=== PATIENT | female | born 1990 | race Hispanic/Latino ===

== ENCOUNTER 2023-04-17 02:26 | Inpatient (IN) | payer SELFPAY ==
[2023-04-17] VITALS (7 sets, daily range): BP systolic 91–125; BP diastolic 57–76; PULSE 64–107; RESP 16–20; TEMP 36.8–37.4; O2SAT 95–99; BMI 19.9; BMI 18.7
[2023-04-17] MEDS: 0.9% Normal Saline (1000mL) 1,000 ML 999 ML IV (02:56)
[2023-04-17 02:57] LABS: Absolute Lymphocyte Count 1.63 X10^3/uL (0.83-4.51); Absolute Neutrophil Count 6.6 X10^3/uL (2.0-7.7); Basophil# 0.03 X10^3/uL; Basophil% 0.3 % (0-1); Eosinophil# 0.03 X10^3/uL; Eosinophils% 0.3 % (0-5); Hematocrit 37.4 % (37-47); Hemoglobin 11.7 g/dL (12.0-15.0); Lymphocyte # 1.63 X10^3/ul (0.83-4.51); Lymphocyte % 17.9 % (19-41); Mean Corp Hgb Conc 31.3 g/dL (32-36); Mean Corpuscular Hgb 25.8 pg (27.0-32.0); Mean Corpuscular Volume 82.4 fL (81-99); Mean Platelet Vol. 9.4 fl (6.2-12.0); Monocyte% 8.8 % (0-10); NRBC Flagged by Analyzer 0 % (0-5); Neutrophil # 6.57 X10^3/uL (2.7-7.7); Platelet Count 381 K/mm3 (150-450); RBC Distribution Width CV 12.9 % (11.6-14.6); Red Blood Count 4.54 M/mm3 (4.2-5.4); White Blood Count 9.1 K/mm3 (4.4-11.0)
[2023-04-17 03:19] LABS: Internal QC Validated? YES +Cl - CLEAR BKGD; Pregnancy, Serum, hCG Quali. NEGATIVE Negative
[2023-04-17 03:23] LABS: International Normalized Ratio 1.3; Prothrombin Time (Protime)PT. 16.4 SECONDS (11.7-14.9)
[2023-04-17 03:24] LABS: Partial Thromboplast Time 43.7 Seconds (24.1-36.2)
[2023-04-17 03:26] LABS: AST(SGOT) 11 U/L (15-37); Alanine Aminotransfer ALT/SGPT 15 U/L (13-56); Albumin, Serum 3.2 g/dL (3.2-5.0); Alkaline Phosphatase 97 U/L (45-117); Anion Gap 10 (5-15); BUN 8 mg/dL (7-18); Bilirubin, Direct 0.19 mg/dL (0.00-0.30); Calcium,Total 8.5 mg/dL (8.5-10.1); Chloride 101 mmol/L (98-107); Creatinine, Serum 0.67 mg/dL (0.55-1.02); EST Glomerular Filtration Rate 109 mL/min (>60); Est Glom Filt Rate - Afr Amer 132 mL/min (>60); Estimated Creatinine Clearance 95.07 ml/min; Globulin 5.1 g/dL (2.2-4.2); Glucose 103 mg/dL (74-106); Lipase 56 U/L (13-75); Potassium 3.2 mmol/L (3.5-5.1); Protein, Total 8.3 g/dL (6.4-8.2); Sodium Level 137 mmol/L (136-145)
--- NOTE | 2023-04-17 04:00 | RAD_ITS ---
INDICATION: cough EXAMINATION/TECHNIQUE: X-RAY - XR Chest 2 Views COMPARISON: None. FINDINGS: LINES/DEVICES: None. LUNGS: Large extensive area of consolidation in the right upper lobe with associated volume loss. Focal lucency within the area suggests cavitation. No pneumothorax. MEDIASTINUM: Unremarkable. CARDIAC SILHOUETTE: Not enlarged. BONES AND SOFT TISSUES: No acute abnormalities. RAD/Chest PA and Lateral IMPRESSION: Right upper lobe consolidation with cavitation. Findings consistent with pneumonia, atypical pneumonia, possible tuberculosis or lung abscess. Electronically Signed: Annie Parish MD at 4:23 EST ,
--- NOTE | 2023-04-17 04:29 | CT_ITS ---
INDICATION: abnormal cxr EXAMINATION: CT CHEST WITH CONTRAST - CT Chest W/ Contrast Injection TECHNIQUE: Helically acquired images were obtained of the chest following IV contrast. A radiation dose optimization technique was used for this scan. IV Contrast: IV 75mL [id number]-370 . RADIATION DOSAGE (If Supplied By Facility): CTDIvol = ( 5.39 ) mGy, DLP = ( 148.85 ) mGycm COMPARISON: Chest x-ray earlier same day. FINDINGS: LUNGS: Large extensive area of consolidation right upper lobe with volume loss. Focal area of cavitation peripherally within this consolidation, measures approximately 3.2 x 3 cm with irregular margins, no enhancing rim. PLEURA: No pleural effusion. No pneumothorax. MEDIASTINUM: Several prominent lymph nodes, largest node precarinal is likely borderline enlarged, suboptimal due to streak artifact from dense venous contrast. HEART: Not enlarged. AORTA: Normal caliber. UPPER ABDOMEN: Liver is very heterogeneous with probable fatty infiltration. BONES/SOFT TISSUES: No acute abnormalities. OTHER: None. CT/Chest WITH Contrast IMPRESSION: Right upper lobe extensive consolidation with peripheral cavitation. Findings most consistent with pneumonia, with cavitation suggesting possible necrotizing pneumonia, early lung abscess, or tuberculosis. Cannot exclude underlying cavitary mass, or central mass/malignancy within the area of consolidation. CT imaging follow-up after treatment 6-8 weeks is essential to confirm resolution and rule out underlying mass. Mediastinal adenopathy likely reactive. Heterogeneous liver likely steatosis but this is not completely assessed. Consider follow-up MRI for further characterization. Electronically Signed: Annie Parish MD at 5:42 EST ,
[2023-04-17 05:19] LABS: Lactic Acid 0.7 mmol/L (0.4-1.9)
[2023-04-17] MEDS: DiphenhydrAMINE 50 MG/ML Syringe 12.5 MG IV (05:40)
[2023-04-17] MEDS: Ceftriaxone 1 GM/50 ML BAG IV (05:40)
--- NOTE | 2023-04-17 06:04 | HP.PCM.HOS_ITS ---
[facility] - General General Date of Admission: 04/17/23 Date of Service: 04/17/23 Chief Complaint: Shortness of breath, bloody cough and weight loss with night sweats. HPI Narrative KEN FOUNTAIN, is a 32 Burmese F with no significant past medical history who presents to [facility] ER complaining of shortness of breath, bloody cough and weight loss with night sweats. Ms. Garcia does not speak [place]itanian so an purification operator helper had to be used to elicit a history. She reports that her symptoms began approximately 2 weeks ago while traveling from [place] to [facility] with hemoptysis and night sweats. She also admits to subjective fever and weight loss with increasing pain in her right upper back and streaks of blood in her sputum. She denies any obvious blood in her stools or dark tarry stools. She is currently here under illegal status but since her condition was worsening she should have decided to come in for further evaluation and treatment. In the ER her CT scan of the chest revealed cavitary pneumonia of the right upper lobe along with mediastinal lymphadenopathy with a high-index of clinical suspicion for pulmonary tuberculosis. The ER physician spoke to the cask maker on-call who recommended patient have acid-fast bacilli staining times 3 + quant-interferon testing to confirm the diagnosis of TB before she would begin the treatment regimen and the patient is in agreement with this plan. While she was in the ER she was treated for possible bacterial pneumonia with IV Rocephin and IV azithromycin and these agents will be continued until her TB diagnosis is fully confirmed. She was then admitted to the PCU for ongoing care for status expected to be greater than 48 hours. [facility] Medical History no medical history Home Medications NK 04/17/23 [History Last Taken Unknown] Allergy/AdvReac Type Severity Reaction Status Date / Time No Known Allergies Allergy Verified 04/17/23 02:32 Surgical History no surgical history Social History Smoking Status: Never smoker ROS ROS Narrative Review of systems was made more difficult by the fact that this patient does not speak [place]ian so an purification operator helper had to be used. Review of Systems ROS Unobtainable: other Constitutional Constitutional: Reports anorexia, change in weight, chills, fatigue, fever(s), malaise, night sweats and weakness Eyes Eyes: Denies blurry vision, change in eye color, change in vision, discharge from eye(s), double vision, erythema, eye pain, loss of vision or other ENT HEENT: Denies abnormal hearing, dysphagia, ear pain, epistaxis, headache(s), hearing loss, nasal congestion, nasal discharge, post nasal drip, sinus pressure, sore throat or other Cardiovascular Cardiovascular: Denies chest pain, claudication, dyspnea on exertion, edema, li ghtheadedness, orthopnea, palpitations, paroxysmal nocturnal dyspnea, rapid heart rate, syncope or other Respiratory/Chest Respiratory/Chest: Reports cough, dyspnea, excessive phlegm production, hemoptysis, productive cough and shortness of breath with exertion Gastrointestinal Gastrointestinal: Denies abdominal pain, coffee ground emesis, constipation, diarrhea, dyspepsia, hematemesis, hematochezia, loose stools, melena, nausea, vomiting or other Genitourinary Genitourinary: Denies burning urination, difficulty urinating, dysuria, hematuria, nocturia, urinary frequency, urinary hesitancy, urinary incontinence, urinary urgency or other Musculoskeletal Musculoskeletal: Reports myalgias Neurologic Neurologic: Denies abnormal gait, abnormal speech, confusion, disequilibrium, dizziness, focal weakness, headache(s), numbness, paresthesias, seizure-like activity, seizures, syncope, tingling, tremor(s) or other Psychiatric Psychiatric: Denies anxiety, depression, homicidal ideation, suicidal ideation or other Endocrine Endocrinology: Denies change in body appearance, cold intolerance, excessive sweating, heat intolerance, polydipsia, polyuria or other Hematologic/Lymphatic Hematologic/Lymphatic: Reports lymphadenopathy Allergic/Immunologic Allergic/Immunologic: Denies rhinitis, hives, eczemia, asthma or other Vital Signs Vital Signs Vital Signs: 04/17/23 02:27 04/17/23 02:35 04/17/23 05:43 Temperature 99.3 F H Temperature Source Oral Pulse Rate 107 H 93 Respiratory Rate 16 16 Respiratory Effort Normal Non-Labored Respiratory Pattern Normal Blood Pressure 125/76 H 106/64 Blood Pressure Mean 92 78 Pulse Ox 95 99 Oxygen Delivery Method Room Air Room Air Weight Weight: 109 lb 2.061 oz Body Mass Index (BMI) 19.9 Physical Exam Const alert, oriented x3, no apparent distress and average body habitus General Appearance: cooperative HEENT normocephalic, head/scalp atraumatic, hearing grossly normal bilaterally, moist oral mucous membranes and oropharynx normal Eyes PERRL and EOMs intact bilaterally Neck supple Resp Resp Narrative: Diminished breath sounds on the right with scattered rhonchi. Auscultation: rhonchi Cardio regular rate and regular rhythm GI normal to inspection, nondistended, normoactive bowel sounds, soft to palpation, non-tender and non-distended Extremity normal to inspection Skin Skin Narrative: Patient has no evidence of rash at this time. Neuro oriented x3, CN's II-XII intact bilaterally, moves all extremities and no focal motor deficits Sensorium / Orientation: awake, alert, oriented to person, oriented to place and oriented to time Speech: speech normal Motor Exam: strength 5/5 throughout Psych affect normal Results Lab / Micro Data Attestation: I reviewed the patient's lab results. 04/17/23 02:42 04/17/23 02:42 Labs: Laboratory Results - last 24 hr 04/17/23 02:42: WBC 9.1, RBC 4.54, Hgb 11.7 L, Hct 37.4, MCV 82.4, MCH 25.8 L, MCHC 31.3 L, RDW Std Deviation 39.0, RDW Coeff of Don 12.9, Plt Count 381, MPV 9.4, Immature Gran % (Auto) 0.700, Neut % (Auto) 72.0 H, Lymph % (Auto) 17.9 L, Kaufman % (Auto) 8.8, Eos % (Auto) 0.3, Baso % (Auto) 0.3, Absolute Neuts (auto) 6.6, Absolute Lymphs (auto) 1.63, Nucleated RBC % 0, PT 16.4 H, INR 1.3, APTT 43.7 H, Sodium 137, Potassium 3.2 L, Chloride 101, Carbon Dioxide 26.0, Anion Gap 10, BUN 8, Creatinine 0.67, Estim Creat Clear Calc 95.07, Est GFR (MDRD) Af Amer 132, Est GFR (MDRD) Non-Af 109, BUN/Creatinine Ratio 12.0, Glucose 103, Calcium 8.5, Total Bilirubin 0.60, Direct Bilirubin 0.19, AST 11 L, ALT 15, Alkaline Phosphatase 97, Total Protein 8.3 H, Albumin 3.2, Globulin 5.1 H, Lipase 56, Serum , Qual NEGATIVE 04/17/23 04:46: Lactic Acid 0.7 Micro: Microbiology 04/17/23 03:54 Stool Stool Occult Blood (AVTAR) - Final Imagaing Radiology Impression Chest X-Ray 04/17/23 04:00 IMPRESSION: Right upper lobe consolidation with cavitation. Findings consistent with pneumonia, atypical pneumonia, possible tuberculosis or lung abscess. Electronically Signed: Annie Parish MD at 4:23 EST , Chest CT 04/17/23 04:29 IMPRESSION: Right upper lobe extensive consolidation with peripheral cavitation. Findings most consistent with pneumonia, with cavitation suggesting possible necrotizing pneumonia, early lung abscess, or tuberculosis. Cannot exclude underlying cavitary mass, or central mass/malignancy within the area of consolidation. CT imaging follow-up after treatment 6-8 weeks is essential to confirm resolution and rule out underlying mass. Mediastinal adenopathy likely reactive. Heterogeneous liver likely steatosis but this is not completely assessed. Consider follow-up MRI for further characterization. Electronically Signed: Annie Parish MD at 5:42 EST , Assessment & Plan Assessment/Plan (1) Cavitary pneumonia: (2) Suspected tuberculosis: PLAN: Plan 1. Extensive right upper lobe cavitary pneumonia with mediastinal lymphadenopathy evident on CT this admission suspicious for tuberculosis - Admit to PCU's negative pressure room. Continue empiric IV Rocephin and IV azithromycin and await culture and sensitivity data. Check acid-fast bacilli staining times 3+ quant interferon testing to confirm suspicion of pulmonary tuberculosis. Give Tylenol as needed for level 1-10 pain or fever. Finally, we will consult cask maker on-call see this patient on rounds later today for further recommendations with help appreciated in advance. 2. Hypokalemia of 3.2 mmol/L present on admission - Give supplemental KCl and then recheck BMP in the AM to ensure improvement. 3. DVT prophylaxis - SCD's only at this time with patient having active hemoptysis. Total time: Approximately 40 minutes. Charges/Coding Visit Charges Inpatient E&M: 11387 Init Hosp L1
--- NOTE | 2023-04-17 06:13 | EDS_ITS ---
HPI History of Present Illness Chief Complaint: General Illness Informant: patient Narrative Narrative: Patient is a 32-year-old female with no reported medical history. She states she is from [place] and that she is in the country illegally. She states for approximately 2 weeks she has had cough and shortness of breath with subjective fevers and states that she has had night sweats and weight loss. She states she has been having increasing pain in her right upper back and has reportedly had bouts of bright red blood in her emesis. She denies any dark or blood from the intestines. She states that as she has had symptoms for a few weeks and feel that they are steadily worsening she comes in for evaluation [facility] Medical History no medical history no medical history Home Medications NK 04/17/23 [History Last Taken Unknown] Allergy/AdvReac Type Severity Reaction Status Date / Time No Known Allergies Allergy Verified 04/17/23 02:32 Surgical History no surgical history Social History Smoking Status: Never smoker ROS ROS ED Constitutional Constitutional ED: Reports fever(s), subjective, sweats and weight loss; Denies chills ENT ENT ED: Denies rhinorrhea or sore throat Cardiovascular Cardiovascular: Denies chest pain Respiratory/Chest Respiratory/Chest: Reports cough and dyspnea Gastrointestinal Gastrointestinal: Reports nausea, vomiting and other Details: Positive hematemesis ; Denies abdominal pain or diarrhea Genitourinary Genitourinary ED: Denies dysuria Musculoskeletal Musculoskeletal: Denies myalgias Integumentary Denies rash Neurologic Neurologic: Denies headache(s) Hematologic/Lymphatic Hematologic/Lymphatic: Denies easy bleeding or easy bruising EXAM Physical Exam Const Vital Signs: 04/17/23 02:27 04/17/23 02:35 04/17/23 05:43 Temperature 99.3 F H Temperature Source Oral Pulse Rate 107 H 93 Respiratory Rate 16 16 Respiratory Effort Normal Non-Labored Respiratory Pattern Normal Blood Pressure 125/76 H 106/64 Blood Pressure Mean 92 78 Pulse Ox 95 99 Oxygen Delivery Method Room Air Room Air Positive well nourished and well developed General Appearance ED: well developed; Negative for pallor HEENT Reports moist mucous membranes HEENT Narrative: No dried blood or active bleeding noted in the posterior pharynx No tongue or lip swelling Airway edema or compromise Eyes PERRL and EOMs intact bilaterally General Eye ED: Negative for scleral icterus Neck supple and no JVD Neck Narrative: No nuchal rigidity or meningeal signs No crepitance palpated Resp normal respiratory effort Resp Narrative: No nasal flaring retractions tachypnea or accessory muscle use. Breath sounds are diminished in the right upper lobe compared to the other lung heath however no obvious wheezes or rhonchi noted Cardio regular rate and regular rhythm Rate: other Other Details: Radial and carotid pulses are equal and symmetric Heart is regular rate and rhythm without murmurs rubs or gallops GI normal to inspection, nondistended, normoactive bowel sounds, non-tender, non- distended and no masses GI Narrative: No voluntary guarding or rigidity. No pulsatile mass or fluid wave. Auscultation: normoactive bowel sounds Palpation: soft Narrative: Rectal exam displays normal tone with brown stool that is Hemoccult negative Extremity normal to inspection Extremity Narrative: No asymmetric edema no pitting edema negative Homans' sign bilaterally Neuro oriented x3 and CN's II-XII intact bilaterally Sensorium / Orientation: alert Psych mental status grossly normal Skin no rashes or lesions noted General Skin Exam: Negative for jaundice or pallor MDM MDM MDM Narrative Medical decision making narrative: Patient presented to the ER in no acute distress. She only speaks [place] so an poultry hatchery man was used for her history of present illness review of systems and physical exam. She stated that she was having hematemesis but on further review it is hemoptysis. Initially basic blood work was ordered to check for potential GI bleed and acute blood loss anemia. His H&H is stable her BUN is not elevated and stool study does not show any blood going against a GI bleed. As the patient then voiced symptoms of upper back pain there is concern this is secondary to a pneumonia so a chest x-ray was added. Chest x-ray showed a consolidation in the right upper lobe so a CT scan was obtained for better image. CT documented a cavitating pneumonia that could be a early lung abscess versus developing TB. The case was discussed with pulmonology/Dr. Howell. He feels as [place] and her symptoms been ongoing for a few weeks and she does not have true fever or elevation to her white count or lactic acid this is most likely TB. At this time as the patient has a high risk of being lost to follow-up and there is still need for confirmation medicine was contacted. They do agree to accept the patient at this time for further workup to designate her pneumonia as TB versus a other type. As she is from the community I did elect to give her Rocephin and Zithromax to cover any possible bacterial pneumonia. Dr. Howell/pulmonology recommends holding off on beginning treatment for potential TB until we have a confirmatory response. The plan of care was discussed with the patient and she is agreeable to it History & Record Review Discussion w/independent historian: Patient Lab Data Attestation: I reviewed the patient's lab results. Labs: Laboratory Results - last 24 hr 04/17/23 04/17/23 02:42 04:46 WBC 9.1 RBC 4.54 Hgb 11.7 L Hct 37.4 MCV 82.4 MCH 25.8 L MCHC 31.3 L RDW Std Deviation 39.0 RDW Coeff of Don 12.9 Plt Count 381 MPV 9.4 Immature Gran % (Auto) 0.700 Neut % (Auto) 72.0 H Lymph % (Auto) 17.9 L [place] % (Auto) 8.8 Eos % (Auto) 0.3 Baso % (Auto) 0.3 Absolute Neuts (auto) 6.6 Absolute Lymphs (auto) 1.63 Nucleated RBC % 0 PT 16.4 H INR 1.3 APTT 43.7 H Sodium 137 Potassium 3.2 L Chloride 101 Carbon Dioxide 26.0 Anion Gap 10 BUN 8 Creatinine 0.67 Estim Creat Clear Calc 95.07 Est GFR (MDRD) Af Amer 132 Est GFR (MDRD) Non-Af 109 BUN/Creatinine Ratio 12.0 Glucose 103 Lactic Acid 0.7 Calcium 8.5 Total Bilirubin 0.60 Direct Bilirubin 0.19 AST 11 L ALT 15 Alkaline Phosphatase 97 Total Protein 8.3 H Albumin 3.2 Globulin 5.1 H Lipase 56 Serum , Qual NEGATIVE Radiography Diagnostic Testing: Clinical Impression(s) from Imaging Studies Chest X-Ray 04/17/23 04:00 IMPRESSION: Right upper lobe consolidation with cavitation. Findings consistent with pneumonia, atypical pneumonia, possible tuberculosis or lung abscess. Electronically Signed: Annie Parish MD at 4:23 EST , Chest CT 04/17/23 04:29 IMPRESSION: Right upper lobe extensive consolidation with peripheral cavitation. Findings most consistent with pneumonia, with cavitation suggesting possible necrotizing pneumonia, early lung abscess, or tuberculosis. Cannot exclude underlying cavitary mass, or central mass/malignancy within the area of consolidation. CT imaging follow-up after treatment 6-8 weeks is essential to confirm resolution and rule out underlying mass. Mediastinal adenopathy likely reactive. Heterogeneous liver likely steatosis but this is not completely assessed. Consider follow-up MRI for further characterization. Electronically Signed: Annie Parish MD at 5:42 EST , Chest x-ray as interpreted by the emergency medicine physician reveals right upper lobe consolidation with mild cavitation Discharge Plan Triage Chief Complaint: General Illness ED Provider: David King Dx/Rx/DC Orders Clinical Impression: Suspected tuberculosis, Cavitary pneumonia Prescriptions: No Action NK Primary Care Provider: Care Physician,No Primary Referrals: Care Physician,No Primary [Primary Care Provider] - Disposition Disposition: Acute Care [facility]
[2023-04-17] MEDS: Azithromycin 500 MG in Dextrose 5%-Water (250mL Bag) 250 ML 250 MG IV (06:18)
[2023-04-17 07:19] LABS: Acid Fast Stain SEE PATHOLOGY REPORT; Cytology, Body Fluid / CSF SEE PATHOLOGY REPORT
[2023-04-17 08:31] LABS: HIV - WCH Non-Reactive (Nonreactive)
[2023-04-17] MEDS: Potassium Chloride Oral Tablet 20 MEQ 40 MEQ PO (09:15)
[2023-04-17] MEDS: 0.9% Normal Saline (1000mL) 1,000 ML 100 ML IV ×2 (09:15→20:36)
[2023-04-17] MEDS: Acetaminophen 325 MG Tablet 650 MG PO (09:26)
[2023-04-17] MEDS: Sodium Chloride 3% 500 ML IV.SOLN. INHALATION (09:45)
--- NOTE | 2023-04-17 10:00 | CYSPIN_PTH ---
PATIENT: URVASHI COLLADO LOC: [facility] U#:[id number] AGE/SX: 32/F ROOM: [facility] RE04/17/[address]: Dr. Lorenzo Shah MD : 1990 BED: 1 DIS: 04/18/2023 SPEC #: [id number] RECD: 04/18/23 11:07 STATUS: ASHLEY RE #: [id number] ANALISA: 04/17/23 10:[address]: Lorenzo Shah DEPT: CYTOLOGY RECD BY: Lluvia Walters ENTERED: 04/18/23 11:08 SP TYPE: CYSPIN FL OTHR DR: MD Dr. Arslan Trivedi DO Dr. David de Lorenzo, DO Dr. Lamia Aljundi, MD Dr. Robert Leininger, MD Dr. Tanmay Panchabhai, MD Primary Care Phys uZlema Pete, MOE-C Tissues: Sputum Procedures: Pap Stain (control) Special Stain Group II Special Stain Group I AFB Stain (control) Cytospin Fluid HEADER OPERATION: Not noted PRE-OP DIAGNOSIS: Suspected TB, right upper lobe cavitary pneumonia TISSUE SUBMITTED: Sputum #1 for cytology DIAGNOSIS CYTOLOGY Sputum #1 for cytology (smears and cytospin): Negative for malignant cells. Rare fungal organisms consistent with Arianna. Positive for acid fast bacilli. See comment. AM:raquel 04/18/2023 COMMENT AFB stain with matched control was used in the evaluation of this case. This case was discussed with Dr. Howell on 04/18/2023. CYTOLOGY STUDY Slides are reviewed. CYTOLOGY GROSS Received is 5 ml of red cloudy fluid labeled with the patient's name and and designated per the requisition as sputum #1. Submitted for cytology preparation. / raquel 04/18/2023 TC:5 CPT: 89771
[2023-04-17] MEDS: Piperacil/Tazobactam 3.375 GM in 0.9% Normal Saline (50mL MB+) 50 ML IV ×3 (10:12→21:04)
--- NOTE | 2023-04-17 12:34 | PN.HOSP_ITS ---
Reason for Visit Reason for Visit: Diagnoses Pneumonia, unspecified organism (04/17/23) Other disorders of lung (04/17/23) Other general symptoms and signs (04/17/23) Subjective Subjective Patient is a 32-year-old lady relatively good health with no chronic medical comorbidities originally from [place] who presented with a 2-week history of shortness of breath cough nausea and vomiting with associated weight loss as well as night sweats. CT of the chest obtained on admission demonstrated Right upper lobe extensive consolidation with peripheral cavitation. Objective Data Objective Data Vital Signs: Vital Signs Temp Pulse Resp BP Pulse Ox O2 Del Method 98.3 F 78 20 H 95/59 L 97 Room Air 04/17/23 08:32 04/17/23 09:40 04/17/23 09:40 04/17/23 08:32 04/17/23 08:32 04/17/23 09:04 Oxygen Delivery Method Room Air Weight: 45 kg Body Mass Index (BMI) 18.7 Intake & Output: Intake and Output for Last 24 Hours 04/15/23 04/16/23 04/17/23 23:59 23:59 23:59 Intake Total 1305 / 1305 Balance 1305 / 1305 Lab / Micro Data 04/17/23 02:42 04/17/23 02:42 Labs: Laboratory Results - last 24 hr 04/17/23 02:42: WBC 9.1, RBC 4.54, Hgb 11.7 L, Hct 37.4, MCV 82.4, MCH 25.8 L, MCHC 31.3 L, RDW Std Deviation 39.0, RDW Coeff of Don 12.9, Plt Count 381, MPV 9.4, Immature Gran % (Auto) 0.700, Neut % (Auto) 72.0 H, Lymph % (Auto) 17.9 L, [place] % (Auto) 8.8, Eos % (Auto) 0.3, Baso % (Auto) 0.3, Absolute Neuts (auto) 6.6, Absolute Lymphs (auto) 1.63, Nucleated RBC % 0, PT 16.4 H, INR 1.3, APTT 43.7 H, Sodium 137, Potassium 3.2 L, Chloride 101, Carbon Dioxide 26.0, Anion Gap 10, BUN 8, Creatinine 0.67, Estim Creat Clear Calc 95.07, Est GFR (MDRD) Af Amer 132, Est GFR (MDRD) Non-Af 109, BUN/Creatinine Ratio 12.0, Glucose 103, Calcium 8.5, Total Bilirubin 0.60, Direct Bilirubin 0.19, AST 11 L, ALT 15, Alkaline Phosphatase 97, Total Protein 8.3 H, Albumin 3.2, Globulin 5.1 H, Lipase 56, Serum , Qual NEGATIVE 04/17/23 04:46: Lactic Acid 0.7 04/17/23 06:27: HIV 1&2 Antibody Non-Reactive Micro: Microbiology 04/17/23 05:47 Nasal Secretion SARS-CoV-2 & FLU Antigen (Rapid) - Final 04/17/23 03:54 Stool Stool Occult Blood (AVTAR) - Final Radiography Diagnostic Testing: Radiology Impression Chest X-Ray 04/17/23 04:00 IMPRESSION: Right upper lobe consolidation with cavitation. Findings consistent with pneumonia, atypical pneumonia, possible tuberculosis or lung abscess. Electronically Signed: Annie Parish MD at 4:23 EST , Chest CT 04/17/23 04:29 IMPRESSION: Right upper lobe extensive consolidation with peripheral cavitation. Findings most consistent with pneumonia, with cavitation suggesting possible necrotizing pneumonia, early lung abscess, or tuberculosis. Cannot exclude underlying cavitary mass, or central mass/malignancy within the area of consolidation. CT imaging follow-up after treatment 6-8 weeks is essential to confirm resolution and rule out underlying mass. Mediastinal adenopathy likely reactive. Heterogeneous liver likely steatosis but this is not completely assessed. Consider follow-up MRI for further characterization. Electronically Signed: Annie Parish MD at 5:42 EST , Physical Exam Narrative GENERAL: cooperative HEENT: Atraumatic; normocephalic EYES; Anicteric, Normal Conjunctiva NECK; supple, normal thyroid, RESPIRATORY: Diminished to auscultation CARDIOVASCULAR: Regular S1 S2, GI: soft, normoactive bowel sounds, : No Renal angle tenderness; EXTREMITIES: No edema, no clubbing, MUSCULOSKELETAL: no muscle wasting NEURO: Awake; no lateralizing signs. SKIN: No Rash PSYCH; Flat affect Assessment & Plan Assessment/Plan (1) Cavitary pneumonia: (2) Suspected tuberculosis: PLAN: Plan Patient is a 32-year-old lady relatively good health with no chronic medical comorbidities originally from [place] who presented with a 2-week history of shortness of breath cough nausea and vomiting with associated weight loss as well as night sweats. CT of the chest obtained on admission demonstrated Right upper lobe extensive consolidation with peripheral cavitation. 1. Cavitary 3 lesion involving the right upper lobe ? CT of the chest did showRight upper lobe extensive consolidation with peripheral cavitation. Findings most consistent with pneumonia, with cavitation suggesting possible necrotizing pneumonia, early lung abscess, or tuberculosis. Admitted to a monitored bed placed in a negative pressure room patient currently being worked up for tuberculosis with QuantiFERON gold as well as AFB's 2. Hypokalemia ? Corrected per protocol 3. DVT prophylaxis Low risk encourage early ambulation Time spent in the patient's overall evaluation,decision-making process, review of diagnostic data, adjustment of management, discussion with other providers, nursing nursing and ancillary staff involved in patient's care documentation, 35 Minutes Charges/Coding Visit Charges Inpatient E&M: 53803 Subs Hosp L2
--- NOTE | 2023-04-17 16:40 | CYSPIN_PTH ---
PATIENT: URVASHI COLLADO LOC: [facility] U#:[id number] AGE/SX: 32/F ROOM: [facility] RE04/17/[address]: Dr. Lorenzo Shah MD : 1990 BED: 1 DIS: 04/18/2023 SPEC #: [id number] RECD: 04/18/23 11:08 STATUS: ASHLEY REAlvarez #: [id number] ANALISA: 04/17/23 16:[address]: Lorenzo Shah DEPT: CYTOLOGY RECD BY: Lluvia Walters ENTERED: 04/18/23 11:08 SP TYPE: CYSPIN FL OTHR DR: MD Dr. Arslan Trivedi DO Dr. David de Lorenzo, DO Dr. Lamia Aljundi, MD Dr. Robert Leininger, MD Dr. Tanmay Panchabhai, MD Primary Care Phys Zulema Pete, [employer]-C Tissues: Sputum Procedures: Pap Stain (control) Special Stain Group II Special Stain Group I AFB Stain (control) Cytospin Fluid HEADER OPERATION: Not noted PRE-OP DIAGNOSIS: Suspected TB, right upper lobe cavitary pneumonia TISSUE SUBMITTED: Sputum #2 for cytology DIAGNOSIS CYTOLOGY Sputum #2 for cytology (smears and cytospin): Negative for malignant cells. Rare fungal organisms consistent with Arianna. Positive for acid fast bacilli. See comment. AM:raquel 04/18/2023 COMMENT AFB stain with matched control was used in the evaluation of this case. This case was discussed with Dr. Howell on 04/18/2023 CYTOLOGY STUDY Slides are reviewed. CYTOLOGY GROSS Received is 2 ml of light pink cloudy, mucoidy fluid labeled with the patient's name and and designated per the requisition as sputum #2. Submitted for cytology preparation. / raquel 04/18/2023 TC:5 CPT: 41401
[2023-04-17 18:56] LABS: Acid Fast Stain SEE PATHOLOGY REPORT; Cytology, Body Fluid / CSF SEE PATHOLOGY REPORT
[2023-04-18 00:30] VITALS: BP 96/57; PULSE 88; RESP 18; TEMP 37.1; O2SAT 98
--- NOTE | 2023-04-18 00:30 | CYSPIN_PTH ---
PATIENT: URVASHI COLLADO LOC: [facility] U#:[id number] AGE/SX: 32/F ROOM: [facility] RE04/17/[address]: Dr. Lorenzo Shah MD : 1990 BED: 1 DIS: 04/18/2023 SPEC #: [id number] RECD: 04/18/23 11:09 STATUS: ASHLEY REAlvarez #: [id number] ANALISA: 04/18/23 00:[address]: Lorenzo Shah DEPT: CYTOLOGY RECD BY: Lluvia Walters ENTERED: 04/18/23 11:09 SP TYPE: CYSPIN FL OTHR DR: MD Dr. Arslan Trivedi DO Dr. David de Lorenzo, DO Dr. Lamia Aljundi, MD Dr. Robert Leininger, MD Dr. Tanmay Panchabhai, MD Primary Care Phys Zulema Pete, [employer]GER-C Tissues: Sputum Procedures: Pap Stain (control) Special Stain Group II Special Stain Group I AFB Stain (control) Cytospin Fluid HEADER OPERATION: Not noted PRE-OP DIAGNOSIS: Suspected TB, right upper lobe cavitary pneumonia TISSUE SUBMITTED: Sputum #3 for cytology DIAGNOSIS CYTOLOGY Sputum #3 for cytology (smears and cytospin): Negative for malignant cells. Rare fungal organisms consistent with Arianna. Positive for acid fast bacilli. See comment. AM:raquel 04/18/2023 COMMENT AFB stain with matched control was used in the evaluation of this case. This case was discussed with Dr. Howell on 04/18/2023. CYTOLOGY STUDY Slides are reviewed. CYTOLOGY GROSS Received is 2 ml of light pink mucoidy fluid labeled with the patient's name and and designated per the requisition as sputum #3. Submitted for cytology preparation. / raquel 04/18/2023 TC:5 CPT: 10812, 49475
--- NOTE | 2023-04-18 00:43 | CPS ---
Obtained 3rd sputum sample, it was blood tindged and thick, clear and frothy with small amt of blood present
[2023-04-18 00:46] LABS: Acid Fast Stain SEE PATHOLOGY REPORT; Cytology, Body Fluid / CSF SEE PATHOLOGY REPORT
[2023-04-18] MEDS: 0.9% Normal Saline (1000mL) 1,000 ML 100 ML IV ×2 (05:06→16:07)
[2023-04-18 05:09] VITALS: BP 87/55; PULSE 84; PULSE 85; RESP 18; TEMP 37.1; O2SAT 97
[2023-04-18 05:17] VITALS: BP 85/52; PULSE 84
[2023-04-18] MEDS: Piperacil/Tazobactam 3.375 GM in 0.9% Normal Saline (50mL MB+) 50 ML IV (05:18)
[2023-04-18 05:52] LABS: Absolute Lymphocyte Count 1.05 X10^3/uL (0.83-4.51); Absolute Neutrophil Count 6.2 X10^3/uL (2.0-7.7); Basophil# 0.01 X10^3/uL; Basophil% 0.1 % (0-1); Eosinophil# 0.09 X10^3/uL; Eosinophils% 1.1 % (0-5); Lymphocyte # 1.05 X10^3/ul (0.83-4.51); Lymphocyte % 13.3 % (19-41); Mean Corp Hgb Conc 31.3 g/dL (32-36); Mean Corpuscular Hgb 26.2 pg (27.0-32.0); Mean Platelet Vol. 9.1 fl (6.2-12.0); Monocyte# 0.52 X10^3/uL; Monocyte% 6.6 % (0-10); NRBC Flagged by Analyzer 0 % (0-5); Neutrophil # 6.19 X10^3/uL (2.7-7.7); Neutrophil % 78.5 % (47-70); Platelet Count 366 K/mm3 (150-450); RBC Distribution Width CV 12.9 % (11.6-14.6); RBC Distribution Width SD 39.8 fl (35.1-43.9); Red Blood Count 3.81 M/mm3 (4.2-5.4); White Blood Count 7.9 K/mm3 (4.4-11.0)
[2023-04-18 06:02] LABS: International Normalized Ratio 1.3
[2023-04-18 06:32] LABS: Anion Gap 5 (5-15); BUN 6 mg/dL (7-18); BUN/Creat Ratio 11.2 RATIO (10-20); Calcium,Total 7.6 mg/dL (8.5-10.1); Chloride 108 mmol/L (98-107); Creatinine, Serum 0.54 mg/dL (0.55-1.02); EST Glomerular Filtration Rate 140 mL/min (>60); Est Glom Filt Rate - Afr Amer 170 mL/min (>60); Estimated Creatinine Clearance 107.23 ml/min; Glucose 95 mg/dL (74-106); Phosphorus 2.5 mg/dL (2.5-4.9); Potassium 4.1 mmol/L (3.5-5.1); Sodium Level 137 mmol/L (136-145)
[2023-04-18 06:56] LABS: Magnesium 2.2 mg/dL (1.6-2.6)
[2023-04-18 06:58] VITALS: BP 106/61; PULSE 78; RESP 18; TEMP 37; O2SAT 97
--- NOTE | 2023-04-18 07:26 | PCM.PN.HOSP ---
Reason for Visit Reason for Visit: Diagnoses Pneumonia, unspecified organism (04/17/23) Other disorders of lung (04/17/23) Other general symptoms and signs (04/17/23) Subjective Subjective Patient seen appears clinically stable. Awaiting QuantiFERON gold test prior to making any decision regarding disposition. Consult placed to infectious disease Objective Data Objective Data Vital Signs: Vital Signs Temp Pulse Resp BP Pulse Ox O2 Del Method 98.6 F 78 18 106/61 97 Room Air 04/18/23 06:58 04/18/23 06:58 04/18/23 06:58 04/18/23 06:58 04/18/23 06:58 04/18/23 06:58 Oxygen Delivery Method Room Air Weight: 45 kg Body Mass Index (BMI) 18.7 Intake & Output: Intake and Output for Last 24 Hours 04/16/23 04/17/23 04/18/23 23:59 23:59 23:59 Intake Total 3315 / 3315 900 / 900 Balance 3315 / 3315 900 / 900 Lab / Micro Data 04/18/23 04:55 04/18/23 04:55 Labs: Laboratory Results - last 24 hr 04/17/23 06:27: HIV 1&2 Antibody Non-Reactive 04/18/23 04:55: WBC 7.9, RBC 3.81 L, Hgb 10.0 L, Hct 32.0 L, MCV 84.0, MCH 26.2 L, MCHC 31.3 L, RDW Std Deviation 39.8, RDW Coeff of Don 12.9, Plt Count 366, MPV 9.1, Immature Gran % (Auto) 0.400, Neut % (Auto) 78.5 H, Lymph % (Auto) 13.3 L, [place] % (Auto) 6.6, Eos % (Auto) 1.1, Baso % (Auto) 0.1, Absolute Neuts (auto) 6.2, Absolute Lymphs (auto) 1.05, Nucleated RBC % 0, PT 16.0 H, INR 1.3, Sodium 137, Potassium 4.1, Chloride 108 H, Carbon Dioxide 24.0, Anion Gap 5, BUN 6 L, Creatinine 0.54 L, Estim Creat Clear Calc 107.23, Est GFR (MDRD) Af Amer 170, Est GFR (MDRD) Non-Af 140, BUN/Creatinine Ratio 11.2, Glucose 95, Calcium 7.6 L, Phosphorus 2.5, Magnesium 2.2 Micro: Microbiology 04/17/23 05:47 Sputum, Expectorated/Coughed Gram Stain - Final 04/17/23 05:47 Nasal Secretion SARS-CoV-2 & FLU Antigen (Rapid) - Final 04/17/23 03:54 Stool Stool Occult Blood (AVTAR) - Final Physical Exam Narrative GENERAL: cooperative HEENT: Atraumatic; normocephalic EYES; Anicteric, Normal Conjunctiva NECK; supple, normal thyroid, RESPIRATORY: Diminished to auscultation CARDIOVASCULAR: Regular S1 S2, GI: soft, normoactive bowel sounds, : No Renal angle tenderness; EXTREMITIES: No edema, no clubbing, MUSCULOSKELETAL: no muscle wasting NEURO: Awake; no lateralizing signs. SKIN: No Rash PSYCH; Flat affect Assessment & Plan Assessment/Plan (1) Cavitary pneumonia: (2) Suspected tuberculosis: PLAN: Plan Patient is a 32-year-old lady relatively good health with no chronic medical comorbidities originally from [place] who presented with a 2-week history of shortness of breath cough nausea and vomiting with associated weight loss as well as night sweats. CT of the chest obtained on admission demonstrated Right upper lobe extensive consolidation with peripheral cavitation. 1. Cavitary 3 lesion involving the right upper lobe ? CT of the chest did showRight upper lobe extensive consolidation with peripheral cavitation. Findings most consistent with pneumonia, with cavitation suggesting possible necrotizing pneumonia, early lung abscess, or tuberculosis. Admitted to a monitored bed placed in a negative pressure room patient currently being worked up for tuberculosis with QuantiFERON gold as well as AFB's ? 04/18/2023;Patient seen appears clinically stable. Awaiting QuantiFERON gold test prior to making any decision regarding disposition. Consult placed to infectious disease 2. Hypokalemia ? Corrected per protocol 3. Anemia - Secondary to chronic disorder monitoring H&H and transfuse if patient becomes symptomatic or hemoglobin falls below 7 4. DVT prophylaxis Low risk encourage early ambulation Time spent in the patient's overall evaluation,decision-making process, review of diagnostic data, adjustment of management, discussion with other providers, nursing nursing and ancillary staff involved in patient's care documentation, 35 Minutes Charges/Coding Visit Charges Inpatient E&M: 70209 Subs Hosp L2
--- NOTE | 2023-04-18 08:03 | CASEMGMT ---
Social Work As per admitting RN, pt does not have LW/POA and declined further information. DAO Pearce
--- NOTE | 2023-04-18 09:22 | CON.PCM.CC_ITS ---
Assessment & Plan Assessment/Plan (1) Suspected tuberculosis: (2) Cavitary pneumonia: PLAN: Plan RECOMMENDATIONS: 1. Await AFB and QuantiFERON gold 2. Consult infectious disease/health department if positive 3. Likely discontinue Zosyn if TB positive 4. Continue respiratory isolation for now IMPRESSIONS: 1. Right upper lobe cavitary pneumonia Patient does not have a significant fever or leukocytosis. However, cavi tation and infiltrate on right upper lobe is significant. This indicates a more protracted clinical course than patient is currently admitting to. Patient is saturating well at this time. Given patient's origin in [place], hemoptysis, night sweats and unintentional weight loss, tuberculosis would be the highest concern. Atypical aspiration would be another potential cause, but patient reportedly is not a drinker and does not look clinically sick enough for a staph or anaerobic infection. Patient does not have significant eosinophilia to suggest parasitic etiology. Patient does have a QuantiFERON and AFB smears currently pending. If both of these are negative, patient can likely be discharged with outpatient follow-up. If QuantiFERON is positive and AFBs are negative, bronchoscopy with BAL of the right upper lobe may be necessary. If QuantiFERON and AFB's are positive, patient likely needs to be initiated on therapy for active TB, inform health department and do contact tracing. HPI Consult Data Date of Consult: 04/18/23 HPI Narrative HPI Narrative: KEN FOUNTAIN is a 32 F, with no reported past medical history, who presents to [facility] on 04/17/2023 secondary to onset of hemoptysis, back pain and cough. Patient reportedly was of her usual health, but started to develop a pleuritic type pain in the right chest that radiated to the back. Patient came in complaining of hemoptysis. Patient had stated that in the ER she had symptoms for couple of weeks and came in for an evaluation. Patient had reported some weight loss and some night sweats. In the ER, patient had a temperature of 99.3 ?F and was slightly tachycardic at 107 bpm. Blood pressure was within normal limits and patient was saturating 99% on room air. Laboratory workup showed a white blood cell count of 9.1, hemoglobin of 11.7 and platelet count of 381. Coagulation studies were relatively normal and chemistries were unremarkable including liver function studies and lactate. A chest x-ray showed a significant right upper lobe consolidation with cavitation. A subsequent CT of the chest confirmed right upper lobe consolidation with peripheral cavitation. Given concern for possible TB, patient was admitted to the floor for further evaluation. On my evaluation this morning, history was obtained using an technology education instructor as patient speaks only Belgian. Patient states that she has never been a smoker, drinks socially and denies any illicit drug use. Patient has a dog, but denies any exposure to bats or birds. Patient is not aware of any exposure to TB, but to her knowledge has never been tested. 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 Patient has never seen a pulmonary physician and denies any history of asthma or COPD. Patient has not had any new rashes, epistaxis or joint pains. Review of systems otherwise negative from a constitutional, HEENT, respiratory, cardiovascular, GI, genitourinary, musculoskeletal, skin, neurologic, psychiatric and hematologic system unless stated above. [facility] Medical History no medical history Home Medications NK 04/17/23 [History Last Taken Unknown] Allergy/AdvReac Type Severity Reaction Status Date / Time No Known Allergies Allergy Verified 04/17/23 02:32 Family History no significant family his no significant family history Surgical History no surgical history no surgical history Social History Smoking Status: Never smoker ROS ROS Narrative See [facility] Medical Records Data Attestation: I reviewed the patient's medical records Medical records narrative: Patient has not previously been [facility] Lab / Micro Data Attestation: I reviewed the patient's lab results. Lab results narrative: Called histology. Anticipate AFB smears later today to be resulted 04/18/23 04:55 04/18/23 04:55 Labs: Laboratory Results - last 24 hr 04/18/23 04:55: WBC 7.9, RBC 3.81 L, Hgb 10.0 L, Hct 32.0 L, MCV 84.0, MCH 26.2 L, MCHC 31.3 L, RDW Std Deviation 39.8, RDW Coeff of Don 12.9, Plt Count 366, MPV 9.1, Immature Gran % (Auto) 0.400, Neut % (Auto) 78.5 H, Lymph % (Auto) 13.3 L, [place] % (Auto) 6.6, Eos % (Auto) 1.1, Baso % (Auto) 0.1, Absolute Neuts (auto) 6.2, Absolute Lymphs (auto) 1.05, Nucleated RBC % 0, PT 16.0 H, INR 1.3, Sodium 137, Potassium 4.1, Chloride 108 H, Carbon Dioxide 24.0, Anion Gap 5, BUN 6 L, Creatinine 0.54 L, Estim Creat Clear Calc 107.23, Est GFR (MDRD) Af Amer 170, Est GFR (MDRD) Non-Af 140, BUN/Creatinine Ratio 11.2, Glucose 95, Calcium 7.6 L, Phosphorus 2.5, Magnesium 2.2 Micro: Microbiology 04/17/23 05:47 Sputum, Expectorated/Coughed Gram Stain - Final 04/17/23 05:47 Nasal Secretion SARS-CoV-2 & FLU Antigen (Rapid) - Final Rhythm Strip Rhythm Strip: Sinus Rhythm Rate: 84 Charges/Coding Visit Charges Inpatient E&M: 00384 Init Hosp L2
--- NOTE | 2023-04-18 13:39 | PCM.CONS.GEN ---
Assessment & Plan Assessment/Plan (1) Suspected tuberculosis: PLAN: Suspected TB. Sputum AFB x3 and TB quantiferon are pending. Sputum cx showing GNR so far. On zosyn. Came from [place] 2 years ago, no prior h/o TB testing or exposures. Reports lives with two other people who are feeling fine. If this is TB, close contacts will need to be tested, she will need to wear a mask in public, and she will need 6 months of abx (starting with [facility]). Health dept can help coordinate testing and observed therapy. Ok to cont zosyn for now. HIV and test neg here. Will follow, thank you, d/w Dr. Howell (2) Cavitary pneumonia: HPI Consult Data Date of Consult: 04/18/23 HPI Narrative Reason for Consultation: cavitary pneumonia HPI Narrative: KEN FOUNTAIN, is a 32 F, [place] speaking, came from [place] 2 years ago, lives with two other people. No prior h/o TB exposure or testing. Presented to ED with several weeks/months of night sweats, weight loss, hemoptysis, pleuritic R upper back pain. CT showed R cavitary lesion. Admitted on zosyn. Feeling ok. Sputum AFB x3 pending. Full ROS performed and neg except as noted above. Exam performed using video language interpreter. [facility] Medical History no medical history Home Medications NK 04/17/23 [History Last Taken Unknown] Allergy/AdvReac Type Severity Reaction Status Date / Time No Known Allergies Allergy Verified 04/17/23 02:32 Family History no significant family his Surgical History no surgical history Social History Smoking Status: Never smoker Physical Exam Const alert, oriented x3 and no apparent distress General Appearance: cooperative HEENT normocephalic and head/scalp atraumatic Eyes PERRL and EOMs intact bilaterally Neck supple and No nodes Resp Resp Narrative: Diminished in RUL Cardio regular rate and regular rhythm GI soft to palpation, non-tender and non-distended Extremity General Extremity: Negative for edema Skin no rashes or lesions noted Neuro CN's II-XII intact bilaterally Lab / Micro Data Attestation: I reviewed the patient's lab results. 04/18/23 04:55 04/18/23 04:55 Labs: Laboratory Results - last 24 hr 04/18/23 04:55: WBC 7.9, RBC 3.81 L, Hgb 10.0 L, Hct 32.0 L, MCV 84.0, MCH 26.2 L, MCHC 31.3 L, RDW Std Deviation 39.8, RDW Coeff of Don 12.9, Plt Count 366, MPV 9.1, Immature Gran % (Auto) 0.400, Neut % (Auto) 78.5 H, Lymph % (Auto) 13.3 L, [place] % (Auto) 6.6, Eos % (Auto) 1.1, Baso % (Auto) 0.1, Absolute Neuts (auto) 6.2, Absolute Lymphs (auto) 1.05, Nucleated RBC % 0, PT 16.0 H, INR 1.3, Sodium 137, Potassium 4.1, Chloride 108 H, Carbon Dioxide 24.0, Anion Gap 5, BUN 6 L, Creatinine 0.54 L, Estim Creat Clear Calc 107.23, Est GFR (MDRD) Af Amer 170, Est GFR (MDRD) Non-Af 140, BUN/Creatinine Ratio 11.2, Glucose 95, Calcium 7.6 L, Phosphorus 2.5, Magnesium 2.2 Micro: Microbiology 04/17/23 05:47 Sputum, Expectorated/Coughed Gram Stain - Final 04/17/23 05:47 Sputum, Expectorated/Coughed Respiratory Culture - Preliminary Gram negative torey Rhythm Strip Rhythm Strip: Sinus Rhythm Rate: 84
--- NOTE | 2023-04-18 13:43 | CASEMGMT ---
Social Work SW did refer pt to [facility] for Medicaid application completion. DAO Pearce
--- NOTE | 2023-04-18 14:29 | DS.PCM_ITS ---
Providers Date of Admission: 04/17/23 Date of Discharge: 04/18/23 Primary Care Physician: Flaca Primary Care Phys Consultations 04/17/23 08:30 Consult: Media Sales Representative / Pulmonary Medicine Routine Consulting Provider: Pulmonary Medicine moncho Vidal Reason for Consult: Suspected pulmonary tuberculosis EMERGENT Consult: No Notified: Yes Date Notified: 04/17/23 Time Notified: 06:34 Method of Notification: Text 04/18/23 10:00 Consult: Infectious Disease Routine Consulting Provider: Carlos Marc Reason for Consult: Right apical cavitatry infection EMERGENT Consult: No Notified: Yes Date Notified: 04/18/23 Time Notified: 10:10 Method of Notification: Text Reason For Visit: RIGHT UPPER LOB CAVITARY PNEUMONIA WITH SUSPECTED Diagnosis Discharge Diagnosis (1) Suspected tuberculosis: Status: Acute Code(s): R68.89 - Other general symptoms and signs (2) Cavitary pneumonia: Status: Acute Code(s): J18.9 - Pneumonia, unspecified organism; J98.4 - Other disorders of lung Plan Patient is a 32-year-old lady relatively good health with no chronic medical comorbidities originally from [place] who presented with a 2-week history of shortness of breath cough nausea and vomiting with associated weight loss as well as night sweats. CT of the chest obtained on admission demonstrated Right upper lobe extensive consolidation with peripheral cavitation. 1. Cavitary 3 lesion involving the right upper lobe consistent with acute tuberculosis ? CT of the chest did showRight upper lobe extensive consolidation with peripheral cavitation. Findings most consistent with pneumonia, with cavitation suggesting possible necrotizing pneumonia, early lung abscess, or tuberculosis. Admitted to a monitored bed placed in a negative pressure room patient currently being worked up for tuberculosis with QuantiFERON gold as well as AFB's ? 04/18/2023;Patient seen appears clinically stable. Awaiting QuantiFERON gold test prior to making any decision regarding disposition. Consult placed to infectious disease ? Patient AFBs came back positive, consistent with tuberculosis. Case was discussed with Dr. Marc plan is for patient to be discharged home to follow-up with the health department. He was instructed to wear mask when out in public and for her close contact to be tested for TB 2. Hypokalemia ? Corrected per protocol 3. Anemia - Secondary to chronic disorder monitoring H&H and transfuse if patient becomes symptomatic or hemoglobin falls below 7 4. DVT prophylaxis Low risk encourage early ambulation Time spent in the patient's overall evaluation,decision-making process, review of diagnostic data, adjustment of management, discussion with other providers, nursing nursing and ancillary staff involved in patient's care documentation, 35 Minutes Medications at Discharge Home Medications NK 04/17/23 Hospital Course Summary of Care Provided Minutes Spent on Discharge: 35 Physical Exam Narrative GENERAL: cooperative HEENT: Atraumatic; normocephalic EYES; Anicteric, Normal Conjunctiva NECK; supple, normal thyroid, RESPIRATORY: Diminished to auscultation CARDIOVASCULAR: Regular S1 S2, GI: soft, normoactive bowel sounds, : No Renal angle tenderness; EXTREMITIES: No edema, no clubbing, MUSCULOSKELETAL: no muscle wasting NEURO: Awake; no lateralizing signs. SKIN: No Rash PSYCH; Flat affect Weight / BMI Weight Weight: 45 kg Body Mass Index (BMI) 18.7 ABG / Lab / Microbiology Data 04/18/23 04:55 04/18/23 04:55 Laboratory: Laboratory Results - last 24 hr 04/18/23 04:55: WBC 7.9, RBC 3.81 L, Hgb 10.0 L, Hct 32.0 L, MCV 84.0, MCH 26.2 L, MCHC 31.3 L, RDW Std Deviation 39.8, RDW Coeff of Don 12.9, Plt Count 366, MPV 9.1, Immature Gran % (Auto) 0.400, Neut % (Auto) 78.5 H, Lymph % (Auto) 13.3 L, Morton % (Auto) 6.6, Eos % (Auto) 1.1, Baso % (Auto) 0.1, Absolute Neuts (auto) 6.2, Absolute Lymphs (auto) 1.05, Nucleated RBC % 0, PT 16.0 H, INR 1.3, Sodium 137, Potassium 4.1, Chloride 108 H, Carbon Dioxide 24.0, Anion Gap 5, BUN 6 L, Creatinine 0.54 L, Estim Creat Clear Calc 107.23, Est GFR (MDRD) Af Amer 170, Est GFR (MDRD) Non-Af 140, BUN/Creatinine Ratio 11.2, Glucose 95, Calcium 7.6 L, Phosphorus 2.5, Magnesium 2.2 Microbiology: Microbiology 04/17/23 05:47 Sputum, Expectorated/Coughed Gram Stain - Final 04/17/23 05:47 Sputum, Expectorated/Coughed Respiratory Culture - Preliminary Gram negative torey 04/17/23 05:47 Nasal Secretion SARS-CoV-2 & FLU Antigen (Rapid) - Final 04/17/23 03:54 Stool Stool Occult Blood (AVTAR) - Final D/C Instructions Discharge Diet: No restrictions Call your doctor if you observe: Fever of 101 or Higher, Shortness of breath, Fainting spells and Chest pain Additional Instructions: Patient to wear mask in public Patient instructed to have all her close contact tested for TB Please Follow Up With: Carlos Marc MD Meaningful Use Info Meaningful Use Diagnoses (Choose all that apply): None applicable Discharge Plan Admission Admit Date/Time: 04/17/23 06:26 Attending Provider: Lorenzo Shah Primary Care Provider: Care Physician,No Primary Consulting Providers: Lorenzo Fischer; Ender Howell; Arslan Win; Wm Blunt; Ha Jay; Zulema Pete VIDEO PRESENTATION OPERATOR; Carlos Marc Discharge Orders/Prescriptions Prescriptions: No Action NK Referrals / Follow Up: Carlos Marc MD [Med Staff - Active Staff] - In 1 Week (In 1 week) Care Physician,No Primary [Primary Care Provider] - 04/21/23 (PATIENT TO FOLLOW UP WITH THE HEALTH DEPARTMENT FOR INITIATION OF TUBERCULOSIS TREATMENT) Disposition Disposition (needs filled in before D/C Order can be placed): Home, Self Care Charges/Coding Visit Charges Inpatient E&M: 08284 Disch Hosp >30min
--- NOTE | 2023-04-18 14:58 | CM.UR ---
Social Work SW met w/pt in room, spoke w/her using the nurses superintendent sana on the Ipad, Violette as the dentist/owner. Pt lives here in [place], lives with Robert Geiger, who is her roommate and friend. Pt states this is a safe place, no safety concerns. Pt has been here for two years. Pt is fully independent, no DME needed. Pt is not working at this time. Pt confirms a second time is staying in a safe place, and has no safety concerns at this time. Pt states plans to return to her home with Robert at discharge. SW did confirm w/pt she does not have insurance. She is interested in completing a Medicaid application. SW explained did make a referral to [facility] who should be calling her to complete a Medicaid application. Pt states understanding. Pt denies any other needs at discharge. SW remains available to assist if needed. DAO Pearce
[2023-04-18] MEDS: Influenza Virus Vac Quad 23-24 60 MCG/0.5 ML SYRINGE IM (16:01)
== END 2023-04-18 17:57 | disposition home or self-care (01) | DRG 179 ==
LOC: ED 06:27 → PCU 06:37
PROVIDERS: Internal Medicine Infectious Disease; Admitting Provider Internal Medicine; Emergency Provider Emergency Medicine; Visit Provider Internal Medicine
DX: A15.0 Tuberculosis of lung (principal); D64.9 Anemia, unspecified; E87.6 Hypokalemia; J18.9 Pneumonia, unspecified organism; J98.4 Other disorders of lung
CPT/HCPCS: 31720; 36415; 71046; 71260; 80048; 80076; 82274; 83605; 83690; 83735; 84100; 84703; 85025; 85610; 85730; 86480; 86703; 87015; 87040; 87070; 87077; 87116; 87184; 87186; 87205; 87206; 87428; 88108; 88312; 88313; 94640; 99282; J7030; J7050; Q9967; 90686; A4216

== ENCOUNTER 2024-05-13 02:32 | Inpatient (IN) | payer SELFPAY ==
[2024-05-13] VITALS (47 sets, daily range): BP systolic 98–177; BP diastolic 55–87; PULSE 77–127; RESP 16–18; TEMP 36.6–37.1; O2SAT 83–99; BMI 19.9
[2024-05-13 02:56] LABS: Absolute Lymphocyte Count 2.09 X10^3/uL (0.83-4.51); Absolute Neutrophil Count 5.5 X10^3/uL (2.0-7.7); Basophil# 0.03 X10^3/uL; Basophil% 0.4 % (0-1); Eosinophil# 0.12 X10^3/uL; Eosinophils% 1.4 % (0-5); Hemoglobin 11.2 g/dL (12.0-15.0); Lymphocyte # 2.09 X10^3/ul (0.83-4.51); Lymphocyte % 25.2 % (19-41); Mean Corpuscular Hgb 23.6 pg (27.0-32.0); Mean Corpuscular Volume 73.7 fL (81-99); Monocyte# 0.49 X10^3/uL; Monocyte% 5.9 % (0-10); NRBC Flagged by Analyzer 0 % (0-5); Neutrophil # 5.53 X10^3/uL (2.7-7.7); Neutrophil % 66.7 % (47-70); Platelet Count 327 K/mm3 (150-450); RBC Distribution Width CV 19.7 % (11.6-14.6); RBC Distribution Width SD 49.9 fl (35.1-43.9); Red Blood Count 4.75 M/mm3 (4.2-5.4); White Blood Count 8.3 K/mm3 (4.4-11.0)
[2024-05-13] MEDS: Lactated Ringers 1,000 ML 50 ML IV (02:57)
[2024-05-13 03:41] LABS: Syphilis Antibodies Non-reactive
[2024-05-13] MEDS: Acetaminophen 500 MG Tablet PO (04:49)
[2024-05-13] MEDS: Lactated Ringers 1,000 ML 200 ML IV (04:51)
[2024-05-13] MEDS: Oxytocin 15 Units/NS 250ml 15 UNITS/250 ML IV.SOLN 2 UNITS IV (07:00)
--- NOTE | 2024-05-13 07:51 | PCM.HP.OB ---
HPI - General General Date of Admission: 05/13/24 Date of Service: 05/13/24 Chief Complaint: SROM HPI Narrative KEN FOUNTAIN, is a 33 F who presents SROM at 9 pm last evening. Hx of TB this . Has been treated through the health dept. Has continue TB medications. Previous deliveries in [place]. Vaginal x 3 GBS negative. minimal care this Maternal Data Information Final DEANA: 06/05/24 Gestational age: 36+5 PFSH PFSH Medical History Active tuberculosis Tuberculosis Tuberculosis Medical History no medical history Home Medications ?Medication ?Instructions ?Recorded ?Last Taken ?Type amoxicillin 875 mg-potassium 875 mg PO Q12H #20 TABLETS 10/15/23 Unknown Rx clavulanate 125 mg tablet albuterol sulfate 90 mcg/actuation 1 - 2 puff inhalation Q4H PRN PRN 11/29/23 Unknown Rx aerosol inhaler (Ventolin HFA) Wheezing 30 days #6.7 grams azithromycin 250 mg tablet 250 mg PO DAILY 4 days #4 tabs 11/29/23 Unknown Rx (Zithromax) vits no.130-ferrous fum 1 tab PO DAILY 12/24/23 Unknown History 27 mg iron-folic acid 800 mcg tablet ( Vitamin) ethambutol 400 mg tablet 800 mg PO DAILY active TB 05/13/24 Unknown History isoniazid 300 mg tablet 300 mg PO DAILY activr tb 05/13/24 Unknown History rifampin 150 mg capsule 150 mg PO DAILY active tb 05/13/24 Unknown History rifampin 300 mg capsule mg PO active tb 05/13/24 Unknown History Allergy/AdvReac Type Severity Reaction Status Date / Time No Known Allergies Allergy Verified 05/13/24 03:49 Family History no significant family his Surgical History no surgical history Social History Smoking Status: Former smoker alcohol intake: never History Elective abortions Hx Para 3 Spontaneous abortions Hx # Term Pregnancies Ectopic pregnancies Hx # Pregnancies Multiple births # of living children NST FHR Rate Baby A Baseline: 130 Variability:: Moderate Accelerations:: 15 x 15 Decelerations:: None NST Reactive:: Yes FHR Category:: Category I Uterine Activity:: q2-3 ROS Constitutional Constitutional: Denies fatigue, fever(s) or malaise Eyes Eyes: Denies change in vision ENT HEENT: Denies dizziness or headache(s) Cardiovascular Cardiovascular: Denies chest pain, dyspnea or lightheadedness Respiratory/Chest Respiratory/Chest: Denies cough or dyspnea Gastrointestinal Gastrointestinal: Denies change in bowel habits Genitourinary Genitourinary: Denies burning urination or genital lesions Integumentary Integumentary: Denies rash Neurologic Neurologic: Denies confusion, dizziness, headache(s), numbness or weakness Vital Signs Vital Signs Vital Signs: 05/13/24 03:04 05/13/24 03:04 05/13/24 04:33 Temperature Temperature Source Pulse Rate 97 88 Respiratory Rate Blood Pressure 121/78 H BP Systolic 121 BP Diastolic 78 Pulse Ox 05/13/24 04:33 05/13/24 04:38 05/13/24 04:38 Temperature Temperature Source Pulse Rate 90 Respiratory Rate Blood Pressure BP Systolic BP Diastolic Pulse Ox 99 99 05/13/24 04:43 05/13/24 04:43 05/13/24 04:48 Temperature Temperature Source Pulse Rate 88 89 Respiratory Rate Blood Pressure BP Systolic BP Diastolic Pulse Ox 99 05/13/24 04:48 05/13/24 05:47 05/13/24 05:47 Temperature Temperature Source Pulse Rate 86 Respiratory Rate Blood Pressure 118/78 BP Systolic 118 BP Diastolic 78 Pulse Ox 98 05/13/24 05:47 05/13/24 05:47 05/13/24 05:47 Temperature 98.7 F Temperature Source Tympanic Pulse Rate Respiratory Rate 18 Blood Pressure BP Systolic BP Diastolic Pulse Ox 05/13/24 07:38 05/13/24 07:38 05/13/24 07:38 Temperature Temperature Source Pulse Rate 127 H Respiratory Rate Blood Pressure 120/71 BP Systolic 120 BP Diastolic 71 Pulse Ox 83 05/13/24 07:38 05/13/24 07:38 05/13/24 07:38 Temperature 97.8 F Temperature Source Oral Pulse Rate Respiratory Rate 18 Blood Pressure BP Systolic BP Diastolic Pulse Ox Weight Weight: 47.8 kg Body Mass Index (BMI) 19.9 Physical Exam Const alert and no apparent distress General Appearance: cooperative HEENT normocephalic Resp normal respiratory effort GI soft to palpation GI Narrative: gravid, nontender, appropriate for gestational age Extremity no calf tenderness General Extremity: edema Skin no wounds Rashes: No rashes noted Psych activity/motor behavior normal Labs Labs Labs: Blood Type A POSITIVE Antibody Screen NEGATIVE Hct 35.0 % (37-47) L Hgb 11.2 g/dL (12.0-15.0) L Obstetrics Ultrasound Syphilis Total Ab Non-reactive HIV 1&2 Antibody Non-Reactive (Nonreactive) Miscellaneous Test Assessment & Plan (1) Tuberculosis affecting : QUALIFIERS: Trimester: third trimester Qualified Code(s): O98.013 - Tuberculosis complicating , third trimester (2) SROM (spontaneous rupture of membranes): (3) 36 weeks gestation of : (4) Language barrier: PLAN: Plan Pit prn Epidural prn GBS negative
[2024-05-13] MEDS: fentaNYL-bupivacaine (epidural) 100 ML BAG EPIDURAL (08:55)
--- NOTE | 2024-05-13 10:39 | OB.VAGDELI_ITS ---
Assessment & Plan (1) Single live : (2) (spontaneous vaginal delivery): (3) 36 weeks gestation of : (4) SROM (spontaneous rupture of membranes): Maternal Data Information Final DEANA: 06/05/24 Gestational age: 36 5/7 Vaginal Delivery Maternal Presentation Maternal Presentation: Spontaneous Rupture of Membranes Type of Induction: Pitocin Vaginal Delivery Information Procedure Performed: Spontaneous Vaginal Delivery Surgeon/Practitioner: Bhavna Corona Date of Procedure: 05/13/24 Pre-Procedure Diagnosis: labor, PPROM Post-Procedure Diagnosis: same Type of anesthesia: Epidural Special Medications: none Estimated Blood Loss: 300 Time of Delivery: 10:21 Findings Description of procedure: A vigorous male was delivered MARIE over an intact perineum. The remainder the infant was delivered with maternal pushing and gentle traction onl y in less than 15 seconds. The Pitocin infusion was initiated for active management of the third stage. The cord was clamped and cut after 1 minute. The infant was attended to by the waiting nursing staff. The placenta was delivered spontaneously and intact. The cervix and vagina were intact. Sponge and needle counts were correct. A vaginal sweep was completed by me. Presentation: MARIE Amniotic Membrane Rupture Type: Spontaneous Amniotic Fluid Description: Clear Placental Delivery Description: Spontaneous Placenta Disposition: [facility] Specimen collected: No Cord Vessel Description: 3 Vessels Cord Entanglement: None Infant A Gender: Male (1 minute): 8 (5 minute): 9 Delayed Cord Clamping: Yes Director Of Medicare talent development consultant: No
[2024-05-13] MEDS: Oxytocin 15 Units/NS 250ml 15 UNITS/250 ML IV.SOLN 83 UNITS IV (10:50)
--- NOTE | 2024-05-13 13:13 | NURSING ---
Phone call from [facility], nurse Margarette, discussing patient need to bring in TB meds from home and to take with direct visualization from hospital or health department staff. Pt and support person aware of need to bring in meds.
[2024-05-13] MEDS: ETHAMBUTOL HCL 400 MG TABLET 800 MG PO (16:21)
[2024-05-13] MEDS: PYRIDOXINE HCL (VITAMIN B6) 25 MG TABLET PO (16:21)
[2024-05-13] MEDS: ISONIAZID 300 MG TABLET PO (16:21)
[2024-05-13] MEDS: rifAMPin 300 MG Capsule PO (16:22)
[2024-05-13] MEDS: rifAMPin 150 MG CAPSULE PO (16:22)
--- NOTE | 2024-05-13 16:38 | NURSING ---
This RN observed pt taking TB meds. as ordered.
[2024-05-14] VITALS (7 sets, daily range): BP systolic 99–118; BP diastolic 58–77; PULSE 78–92; RESP 16; TEMP 36.4–36.8; O2SAT 97–98
[2024-05-14] MEDS: Acetaminophen 500 MG Tablet 1000 MG PO (04:22)
[2024-05-14] MEDS: Ibuprofen 600 MG Tablet PO (04:25)
--- NOTE | 2024-05-14 08:21 | PCM.PROGNOTE ---
Subjective Subjective patient seen at bedside, doing well. Patient reports good pain control. lochia mild. Objective Data Objective Data Vital Signs: Vital Signs Temp Pulse Resp BP Pulse Ox O2 Del Method 97.5 F L 81 16 118/77 98 Room Air 05/14/24 03:51 05/14/24 03:51 05/14/24 03:51 05/14/24 03:51 05/14/24 03:51 05/14/24 03:51 Oxygen Delivery Method Room Air Weight: 47.8 kg Body Mass Index (BMI) 19.9 Intake & Output: Intake and Output for Last 24 Hours 05/12/24 05/13/24 05/14/24 23:59 23:59 23:59 Intake Total 2476.87 / 2476.87 Output Total 700 / 700 Balance 1776.87 / 1776.87 Lab / Micro Data 05/13/24 02:35 Physical Exam Const alert and oriented x3 General Appearance: cooperative HEENT normocephalic Neck General: normal visual inspection GI soft to palpation and non-distended GI Narrative: Fundus firm Extremity normal to inspection and no calf tenderness Skin no rashes or lesions noted Neuro oriented x3 and CN's II-XII intact bilaterally Psych mental status grossly normal Assessment & Plan Assessment/Plan (1) Single live : (2) (spontaneous vaginal delivery): (3) Language barrier: (4) Tuberculosis affecting : QUALIFIERS: Trimester: third trimester Qualified Code(s): O98.013 - Tuberculosis complicating , third trimester (5) delivery: PLAN: Plan PPD#1 , Doing well Routine care pain mgmt ambulation dc home
--- NOTE | 2024-05-14 08:22 | DCINST_ITS ---
Discharge Instructions Diet Discharge Diet: No restrictions DC O2, CPAP, BIPAP needs Home O2 Discharge instructions: No Dressing / Incision May resume sexual activity in: 6-8 weeks Dressing / Incision Call your doctor if you observe: Fever of 101 or Higher, Inability to urinate, Using more than 1 pad per hour and Uncontrolled pain Follow Up Care Please Follow Up With: Laura Acosta MD When: 1-2 weeks post and again at 6 weeks post . [phone] Test Results: Test results from this visit will be discussed in further detail at your follow- up appointment, if applicable. Discharge Plan Admission Admit Date/Time: 05/13/24 02:32 Attending Provider: Bhavna Corona Primary Care Provider: Care PhysicianFlaca Primary Discharge Orders/Prescriptions Prescriptions: New acetaminophen 500 mg Tablet 1,000 mg PO Q6H PRN PRN (Reason: Pain 1-10 Or Fever) Qty: 0 0RF ibuprofen 600 mg Tablet 600 mg PO Q6H PRN PRN (Reason: Pain Score 1-10) Qty: 0 0RF Continued albuterol sulfate [Ventolin HFA] 90 mcg/actuation HFA aerosol inhaler 1 - 2 puff inhalation Q4H PRN PRN (Reason: Wheezing) 30 Days Qty: 6.7 0RF Vitamin 27 mg iron- 800 mcg tablet 1 tab PO DAILY ethambutol 400 mg tablet 800 mg PO DAILY isoniazid 300 mg tablet 300 mg PO DAILY rifampin 150 mg capsule 150 mg PO DAILY rifampin 300 mg capsule 450 mg PO DAILY Referrals / Follow Up: Care Physician,Flaca Primary [Primary Care Provider] - Disposition Disposition (needs filled in before D/C Order can be placed): Home, Self Care
--- NOTE | 2024-05-14 12:32 | CASEMGMT ---
Social Work Assessment Labor and Delivery Unit Patient Address:[address], [place] [address] Phone number: [phone], Date of Referral: 05/13/24 Time of Referral:? 1835 Referred By: Dr. Corona Date of Intervention: ??05/14/24 Time of Intervention:? 1200 Reason for Referral:? limited care, 3 other children in [place], speaks no khmer Sw completed chart review and acknowledges social work consult. Sw presented to bedside and introduced self to mother of baby (MOB- Caitie). Asleep on couch is who MOB claims to be father of baby (FOB- Robert Gardiner). Sw completed psychosocial assessment and made referrals as appropriate. History obtained from: medical records, MOB Household composition: JEM reports that she lives alone, now with when ready for discharge, in trailer. MOB states that FOB helps pay the rent on the trailer. MOB states that FOB does not live with her, she states that she does not know where he lives. MOB denied any issues or concerns with housing. Patient's parent/guardian status:? ?MOB states that she and FOB have known each other for two years. MOB reports that she and FOB are not together, they are , but together at hospital now due to baby being born. While completing assessment, FOB was observed to be asleep on couch. Sw asked MOB more in depth questions regarding her relationship with FOB and assessed for safety. - MOB reports to being safe - MOB denies anyone withholding necessities in exchange for anything. - MOB denies being put in unwanted dangerous situations. Medical History: ?JEM is 33 year old female who is admitted due to delivery of baby. JEM received limited care during . Completing chart review, bree notes that JEM discovered she was at 4-5 weeks gestation. At that time JEM was prescribed medications to treat tuberculosis, but she stopped taking the medication upon discovering she was . JEM states that she was sick regularly throughout her . JEM was court ordered to complete tuberculosis treatment when she was 12-16 weeks while admitted to [facility]. JEM then started routine care with [facility]. - JEM presented to hospital following spontaneous rupture of membranes. Baby was born on 05/13/24 via vaginal delivery. Baby boy, named Jeremy Gardiner, was born weighing 6lb 4oz with apgars of 8 and 9 at one and five minutes of life, respectfully. MOB is breast feeding. Identified hospital director is Seifred. Educational Status:? JEM states that she graduated from high school in [place]. 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 MOB states that she has not been able to work after becoming sick. MOB states that now that baby is born she would like to return to work, but does not know how to find employment. MOB states that the company she was previously working for now wants her to provide legal documents. MOB states that JOAQUINA works, but he does several odd jobs, she does not know what they are. Supplies: MOB states that she has obtained a car seat, safe sleep space, and some clothes for baby. Childcare/Caregiver(s):? MOB reports that she will be the primary caregiver to baby. Transportation:?? MOB does not drive. MOB reports that she would ask FOB to take her to her doctor's appointments as favors. Programs/Agencies Involved: ??MOB is connected to [facility] that will help her get medicaid for baby. MOB denies being connected to any other community resources. - Bree encouraged MOB to get connected to [facility] [employer], WIC and [facility]. - Sw to make [facility] referral. ? Children Services/Legal Issues:??? No history of children services involvement. Bree decision made to make referral to [facility] due to social concerns. MOB does not have any supports, transportation or means of income. MOB and FOB are not in relationship, and MOB denying coercion, however dynamics of relationship still have gaps and leave lots of questions. - Bree made referral to [facility] and spoke to hotline screener: Renetta. Behavioral Health Issues: ??Mental Health History:??FOB informed the hospital director that he has been diagnosed with anxiety and takes medication, some of the time. MOB denies mental health history/ diagnoses. ? Substance Use History:?MOB denies substance use prior to and during . ? Family History:? ?MOB denies family history of substance use or mental health history. ??? Drug Screens: No drug screens observed in chart review. Family/Social Stressors:? MOB denies stressors or concerns other than she would like to find employment. - Sw has several social concerns regarding MOB and baby. MOB has limited to no supports, her only family resides in [place] and she is not permitted to leave the [facility] due to her TB diagnosis. MOB has no income and no transportation. JEM is not a legal citizen and that is proving to be difficult for her to find employment. MOB and FOB relationship is unknown- although MOB reports that they are not together. MOB states that she asks FOB for help getting to appointments as favors. MOB states that she will also need to ask him to help to get to baby hospital director appointments. Support Systems: MOB states that she has no supports, her sister is in [place] and resides in [place]. Depression/Shaken Baby/Safe Sleeping: Sw educated MOB on signs and symptoms of baby blues and mood and anxiety disorders to be mindful of during this period. MOB expressed understanding. Sw educated MOB on shaken baby prevention and ABCs of safe sleep, MOB expressed understanding. ASSESSMENT:? MOB and baby admitted following labor and delivery. MOB with extensive medical history positive for tuberculosis. MOB sitting in bed and attentive to complete assessment, however language barrier proved to provide challenges, even while using Ipad to interpret. Alleged father of baby was also present during assessment, but was asleep on couch in room throughout duration. MOB states that she has a car seat, safe sleep space and some clothes for baby. MOB does not drive and lacks assistance with transportation. MOB has limited supports, her only relative is in [place], however MOB restricted to staying in [facility] due to Tuberculosis diagnosis. Due to concerns of safety for MOB (although she denies), lack of support and resources, bree made referral to [facility]. Intake screener took referral and will pass along with supervisor metal furniture assembly who will make decision as to whether will be screened in or not. MOB and baby to be discharged today, FOB to take them home. PLAN:?? No other services requested or indicated. MOB and baby to be discharged when medically ready. Parents were provided literature regarding: signs and symptoms of baby blues and mood and anxiety disorders, [facility], shaken baby prevention, ABCs of safe sleep and a list of [facility] resources that are available for them should any needs present themselves. Fernando Batista, SUEDE BRUSHER, BRICK BAKER
[2024-05-14] MEDS: ISONIAZID 300 MG TABLET PO (16:41)
[2024-05-14] MEDS: rifAMPin 300 MG Capsule PO (16:41)
[2024-05-14] MEDS: rifAMPin 150 MG CAPSULE PO (16:41)
[2024-05-14] MEDS: ETHAMBUTOL HCL 400 MG TABLET 800 MG PO (16:41)
[2024-05-14] MEDS: PYRIDOXINE HCL (VITAMIN B6) 25 MG TABLET PO (16:41)
--- NOTE | 2024-05-17 10:19 | NURSING ---
Late entry 05/14/2024 1641- This RN at beside to directly visualize patient taking prescribed medications. Charted in real time on med administration record.
== END 2024-05-14 18:55 | disposition home or self-care (01) | DRG 806 ==
LOC: WPOUT 02:34 → WP 02:34
PROVIDERS: Admitting Provider Obstetrics & Gynecology; Referring Provider Obstetrics & Gynecology; Visit Provider Obstetrics & Gynecology
DX: O60.14X0 Preterm labor third trimester with preterm delivery third trimester, not applicable or unspecified (principal); Z37.0 Single live birth; O98.02 Tuberculosis complicating childbirth; A15.9 Respiratory tuberculosis unspecified; Z3A.36 36 weeks gestation of pregnancy; Z79.899 Other long term (current) drug therapy; Z87.891 Personal history of nicotine dependence
CPT/HCPCS: 59025; 59050; 85025; 86780; 86850; 86900; 86901; 99221; J7120; G0378

== ENCOUNTER 2024-05-16 01:34 | Emergency (ER) | payer SELFPAY ==
[2024-05-16 01:36] VITALS: BP 125/78; PULSE 108; RESP 16; TEMP 36.9; O2SAT 97; BMI 19.2
--- NOTE | 2024-05-16 02:12 | US_ITS ---
EXAM: US PELVIS TRANSVAGINAL CLINICAL INDICATION: retained products of conception? -- FEVER, CHILLS, HEAVY BLEEDING, CLOTS -- GAVE 05/13/24 TECHNIQUE: Transvaginal pelvic ultrasound was performed with grayscale and color Doppler imaging. Transvaginal imaging was used for better evaluation of the endometrium and adnexa. COMPARISON: No relevant prior studies available. FINDINGS: UTERUS/CERVIX: The endometrial cavity is thickened up to 3.2 cm with heterogeneous echogenicity and increased vascularity. Uterus: 14.2 x 12.4 x 8 cm. Some fluid and debris/blood products within the cervical canal. Anteverted. There is no uterine mass. RIGHT OVARY: Right ovary not visualized due to bowel gas. LEFT OVARY: Left ovary not visualized due to bowel gas. FREE FLUID: None. BLADDER: Empty bladder which cannot be evaluated with this probe. US/Transvaginal Non- IMPRESSION: The endometrial cavity is thickened up to 3.2 cm with heterogeneous echogenicity and increased vascularity. Findings could indicate retained products of conception. Electronically Signed: Juwan Elaine MD at 4:47 EST ,
[2024-05-16 02:32] LABS: Absolute Lymphocyte Count 0.85 X10^3/uL (0.83-4.51); Absolute Neutrophil Count 12.4 X10^3/uL (2.0-7.7); Basophil# 0.02 X10^3/uL; Basophil% 0.1 % (0-1); Eosinophil# 0.07 X10^3/uL; Eosinophils% 0.5 % (0-5); Lymphocyte # 0.85 X10^3/ul (0.83-4.51); Lymphocyte % 6.2 % (19-41); Mean Corp Hgb Conc 31.4 g/dL (32-36); Mean Corpuscular Hgb 23.2 pg (27.0-32.0); Mean Corpuscular Volume 73.8 fL (81-99); Mean Platelet Vol. 9.9 fl (6.2-12.0); Monocyte# 0.44 X10^3/uL; Monocyte% 3.2 % (0-10); NRBC Flagged by Analyzer 0 % (0-5); Neutrophil # 12.36 X10^3/uL (2.7-7.7); Neutrophil % 89.6 % (47-70); Platelet Count 326 K/mm3 (150-450); RBC Distribution Width CV 19.9 % (11.6-14.6); RBC Distribution Width SD 51.7 fl (35.1-43.9); Red Blood Count 4.74 M/mm3 (4.2-5.4); White Blood Count 13.8 K/mm3 (4.4-11.0)
[2024-05-16 02:50] LABS: AST(SGOT) 91 U/L (15-37); Alanine Aminotransfer ALT/SGPT 59 U/L (13-56); Albumin, Serum 2.5 g/dL (3.2-5.0); Alkaline Phosphatase 246 U/L (45-117); Anion Gap 5 (5-15); BUN 14 mg/dL (7-18); BUN/Creat Ratio 24.5 RATIO (10-20); Bilirubin, Direct 0.14 mg/dL (0.00-0.30); Calcium,Total 8.3 mg/dL (8.5-10.1); Chloride 108 mmol/L (98-107); Creatinine, Serum 0.57 mg/dL (0.55-1.02); EST Glomerular Filtration Rate 130 mL/min (>60); Est Glom Filt Rate - Afr Amer 157 mL/min (>60); Estimated Creatinine Clearance 103.12 ml/min; Globulin 4.2 g/dL (2.2-4.2); Glucose 110 mg/dL (74-106); Potassium 3.6 mmol/L (3.5-5.1); Protein, Total 6.7 g/dL (6.4-8.2); Sodium Level 139 mmol/L (136-145)
--- NOTE | 2024-05-16 03:04 | EX.ED.DYSGE1 ---
HPI History of Present Illness Chief Complaint: Abd Pain Informant: patient and family Narrative Narrative: 33-year-old female presenting to the emergency room with pelvic pain and breast enlargement/pain. Patient gave vaginally on 13 May here at this hospital. She states she was discharged home Chet night. She states that she has pelvic pain and continued bleeding that is about the same as when she left the hospital. She notes chills but no fever. She states that she is trying to breast-feed but there has not been any milk letdown yet and that her breast are very painful for her. She has not spoken with document management consultant since discharge and she did not speak with her PRELOAD SUPERVISOR. She and her family did not realize that they could speak with the on-call job cost estimator prior to coming to the emergency department. Patient chart reviews that her was complicated by tuberculosis. Baby has been doing well. [facility] Medical History Active tuberculosis Tuberculosis Tuberculosis Home Medications ?Medication ?Instructions ?Recorded ?Last Taken ?Type albuterol sulfate 90 mcg/actuation 1 - 2 puff inhalation Q4H PRN PRN 11/29/23 Unknown Rx aerosol inhaler (Ventolin HFA) Wheezing 30 days #6.7 grams vits no.130-ferrous fum 1 tab PO DAILY 12/24/23 Unknown History 27 mg iron-folic acid 800 mcg tablet ( Vitamin) ethambutol 400 mg tablet 800 mg PO DAILY active TB 05/13/24 Unknown History isoniazid 300 mg tablet 300 mg PO DAILY activr tb 05/13/24 Unknown History rifampin 150 mg capsule 150 mg PO DAILY active tb 05/13/24 Unknown History rifampin 300 mg capsule 450 mg PO DAILY active tb 05/13/24 05/12/24 16:00 History 450 mg acetaminophen 500 mg tablet 1,000 mg (2 x 500 mg) PO Q6H PRN 05/14/24 Unknown Rx PRN Pain 1-10 Or Fever #0 tabs ibuprofen 600 mg tablet 600 mg PO Q6H PRN PRN Pain Score 05/14/24 Unknown Rx 1-10 #0 tabs amoxicillin 875 mg-potassium 1 tab PO Q12H 10 days #20 tabs 05/16/24 Unknown Rx clavulanate 125 mg tablet Allergy/AdvReac Type Severity Reaction Status Date / Time No Known Allergies Allergy Verified 05/16/24 01:42 Social History Smoking Status: Former smoker alcohol intake: never ROS ROS ED Constitutional Constitutional ED: Reports chills; Denies fever(s), sweats or weight loss Eyes Eyes: Denies change in vision or diplopia ENT ENT ED: Denies ear pain, rhinorrhea or sore throat Cardiovascular Cardiovascular: Denies chest pain, orthopnea, palpitations or racing heartbeat Respiratory/Chest Respiratory/Chest: Denies cough, dyspnea or orthopnea Gastrointestinal Gastrointestinal: Denies abdominal pain, diarrhea, nausea or vomiting Genitourinary Genitourinary ED: Reports other Details: Pelvic pain +lochia breast enlargement and pain ; Denies dysuria, hematuria or urinary frequency Musculoskeletal Musculoskeletal: Denies arthralgias or myalgias Integumentary Denies abscess or rash Neurologic Neurologic: Denies headache(s) or weakness Psychiatric Psychiatric: Denies anxiety, depression, suicidal ideation or suicidal thoughts Endocrine Endocrinology: Denies polydipsia, polyphagia or polyuria Allergic/Immunologic Allergic/Immunologic ED: Denies mouth swelling, tongue swelling or urticaria EXAM Physical Exam Const Vital Signs: 05/16/24 01:36 05/16/24 04:30 05/16/24 06:00 Temperature 98.5 F Temperature Source Oral Pulse Rate 108 H 91 86 Respiratory Rate 16 16 16 Blood Pressure 125/78 H 106/68 107/65 Blood Pressure Mean 93 80 79 Pulse Ox 97 96 96 Oxygen Delivery Method Room Air Room Air 05/16/24 06:27 Temperature 98.0 F Temperature Source Pulse Rate 86 Respiratory Rate 16 Blood Pressure 107/65 Blood Pressure Mean 79 Pulse Ox 96 Oxygen Delivery Method Positive well nourished and well developed General Appearance ED: well developed HEENT Reports normocephalic, head/scalp atraumatic and moist mucous membranes Eyes PERRL and EOMs intact bilaterally Neck no lymphadenopathy, supple and no JVD Resp normal respiratory effort and clear to auscultation bilaterally Cardio regular rate, regular rhythm and no murmurs Rate: tachycardic GI Palpation: soft and tender suprapubic; Negative for guarding or rebound tenderness present Narrative: Bilateral breast enlargement and tenderness. I do not appreciate any skin erythema. I do not appreciate a discharge from the nipples. Back/Spine no CVA tenderness and normal ROM Extremity normal to inspection General Extremety ED: Negative for edema General Extremity: Negative for edema Neuro oriented x3 and CN's II-XII intact bilaterally Sensorium / Orientation: alert Motor Exam: strength 5/5 throughout Psych mental status grossly normal Mood & Affect: Negative for depressed or tearful Skin no rashes or lesions noted and no wounds MDM MDM MDM Narrative Medical decision making narrative: Differential diagnosis includes but not limited to endometritis retained products of conception pelvic infection uterine atony anemia Patient's white count slightly elevated 13.8 with 89.6 neutrophils hemoglobin is 11 slightly lower than her preceding hemoglobin at discharge platelet count 326 slight elevation of LFTs with an AST of 91 ALT 59 alk phos 246 normal bilirubin 0.4 and 0.14. Pelvic ultrasound was obtained read by radiology reviewed by myself. Please see radiologist read for full details. I discussed the case with on-call job cost estimator Dr. Alcantar. She came to the emergency department and evaluated the patient. Recommendation was for D&C which the patient is declining. Recommendation then would include antibiotics and follow-up tomorrow in the office. Dr. Alcantar be writing the antibiotic. Patient understands the risk and benefits of the recommended D&C as well as outpatient treatment. As far as the , Dr Alcantar addressed this as well and she will be seeing document management consultant. History & Record Review Discussion w/independent historian: Patient Lab Data Attestation: I reviewed the patient's lab results. Labs: Laboratory Results - last 24 hr 05/16/24 02:27 WBC 13.8 H RBC 4.74 Hgb 11.0 L Hct 35.0 L MCV 73.8 L MCH 23.2 L MCHC 31.4 L RDW Std Deviation 51.7 H RDW Coeff of Don 19.9 H Plt Count 326 MPV 9.9 Immature Gran % (Auto) 0.400 Neut % (Auto) 89.6 H Lymph % (Auto) 6.2 L [place] % (Auto) 3.2 Eos % (Auto) 0.5 Baso % (Auto) 0.1 Absolute Neuts (auto) 12.4 H Absolute Lymphs (auto) 0.85 Nucleated RBC % 0 Sodium 139 Potassium 3.6 Chloride 108 H Carbon Dioxide 26.0 Anion Gap 5 BUN 14 Creatinine 0.57 Estim Creat Clear Calc 103.12 Est GFR (MDRD) Af Amer 157 Est GFR (MDRD) Non-Af 130 BUN/Creatinine Ratio 24.5 H Glucose 110 H Calcium 8.3 L Total Bilirubin 0.40 Direct Bilirubin 0.14 AST 91 H ALT 59 H Alkaline Phosphatase 246 H Total Protein 6.7 Albumin 2.5 L Globulin 4.2 Radiography Diagnostic Testing: Clinical Impression(s) from Imaging Studies Transvaginal US 05/16/24 02:12 IMPRESSION: The endometrial cavity is thickened up to 3.2 cm with heterogeneous echogenicity and increased vascularity. Findings could indicate retained products of conception. Electronically Signed: Juwan Elaine MD at 4:47 EST , Discharge Plan Triage Chief Complaint: Abd Pain ED Provider: Darron Aviles Dx/Rx/DC Orders Clinical Impression: endometritis, Uterine pain, Breast pain, Status post vaginal delivery Instructions: ED Obstetric Endometritis Prescriptions: New amoxicillin-pot clavulanate 875-125 mg tablet 1 tab PO Q12H 10 Days Qty: 20 0RF No Action albuterol sulfate [Ventolin HFA] 90 mcg/actuation HFA aerosol inhaler 1 - 2 puff inhalation Q4H PRN PRN (Reason: Wheezing) 30 Days Qty: 6.7 0RF Vitamin 27 mg iron- 800 mcg tablet 1 tab PO DAILY ethambutol 400 mg tablet 800 mg PO DAILY isoniazid 300 mg tablet 300 mg PO DAILY rifampin 150 mg capsule 150 mg PO DAILY rifampin 300 mg capsule 450 mg PO DAILY acetaminophen 500 mg Tablet 1,000 mg PO Q6H PRN PRN (Reason: Pain 1-10 Or Fever) Qty: 0 0RF ibuprofen 600 mg Tablet 600 mg PO Q6H PRN PRN (Reason: Pain Score 1-10) Qty: 0 0RF Primary Care Provider: Care Physician,No Primary Referrals: Soheila Alcantar DO [Med Staff - Active Staff] - Keep Mary appointment Care Physician,No Primary [Primary Care Provider] - Print Language: Spanish Disposition Disposition: Home, Self Care Discharge Date/Time: 05/16/24 07:02
[2024-05-16 04:30] VITALS: BP 106/68; PULSE 91; RESP 16; O2SAT 96
[2024-05-16 06:00] VITALS: BP 107/65; PULSE 86; RESP 16; O2SAT 96
[2024-05-16 06:27] VITALS: BP 107/65; PULSE 86; RESP 16; TEMP 36.7; O2SAT 96
--- NOTE | 2024-05-16 06:27 | PCM.CONS.GEN ---
Assessment & Plan Assessment/Plan (1) Status post vaginal delivery: (2) Mother currently breast-feeding: (3) Breast pain: PLAN: No evidence of mastitis on breast exam. Engorged and breast milk supply has come in. The patient has an appointment with Friday. Encouraged to keep that appointment. (4) Uterine pain: (5) endometritis: PLAN: The patient presents to the ER with chills and uterine pain. White blood Cell count is slightly elevated, she is afebrile in the emergency department. Uterus is tender on exam consistent with endometritis. Pelvic ultrasound cannot rule out retained products of conception. Pelvic ultrasound images reviewed. Discussed ultrasound findings with patient and partner at bedside. Discussed limitations with a pelvic ultrasound when assessing for retained products of conception. However discussed with patient she has no other risk factors for endometritis at this time, given labor and delivery course was uncomplicated. Discussed clinically my suspicion is high for retained products of conception, and I strongly recommend a suction D&C. Discussed risk, benefits, alternatives to a suction D&C. The patient declined surgical intervention stating that she has concern in general for any surgery. She then had questions about marriage. All of her specific questions were answered regarding surgery, and I did discuss with her that she will still have a uterus and can carry pregnancies in the future. Reviewed the surgery in detail of how a suction D&C is performed. Discussed risks of going home without a suction D&C if there are retained products of conception, which include but are not limited to risk of worsened infection with sepsis and increased vaginal bleeding with hemorrhage. Patient states she understands my recommendation is for suction D&C, and she understands her risks of going home. She understands going home without proceeding with the suction D&C is against my medical advice, and she feels she was well counseled and all questions were answered. Will prescribe the patient Augmentin, and contact my office to have the patient scheduled for an appointment on Friday for repeat pelvic ultrasound and appointment. The patient is agreeable to following up in the office on Friday. Discussed reasons to call today or return to the ER. A warehouse order filler was used for the emergency room visit. HPI Consult Data Date of Consult: 05/16/24 HPI Narrative Reason for Consultation: abdominal pain HPI Narrative: URVASHI MERCADO, is a 33 F who presents to the emergency department 3 days from an uncomplicated spontaneous vaginal delivery. She reports chills, generalized bilateral breast tenderness, and worsened abdominal pain. Her labor and delivery course was uncomplicated. She reports she was doing well on discharge. She states she was more active today visiting family and friends, and attributes her feeling unwell to this. She denies fevers at home. She does present with chills and malaise. She is breast-feeding with some difficulty with latching, and has a appointment on Friday. She denies nausea, vomiting, urinary symptoms, changes in bowel movement, leg pain. Lochia is minimal and appropriate. The abdominal pain worsened throughout the day today. She describes the pain as feeling like uterine contractions. She denies any vaginal discharge. [facility] Medical History Active tuberculosis Tuberculosis Tuberculosis Home Medications ?Medication ?Instructions ?Recorded ?Last Taken ?Type albuterol sulfate 90 mcg/actuation 1 - 2 puff inhalation Q4H PRN PRN 11/29/23 Unknown Rx aerosol inhaler (Ventolin HFA) Wheezing 30 days #6.7 grams vits no.130-ferrous fum 1 tab PO DAILY 12/24/23 Unknown History 27 mg iron-folic acid 800 mcg tablet ( Vitamin) ethambutol 400 mg tablet 800 mg PO DAILY active TB 05/13/24 Unknown History isoniazid 300 mg tablet 300 mg PO DAILY activr tb 05/13/24 Unknown History rifampin 150 mg capsule 150 mg PO DAILY active tb 05/13/24 Unknown History rifampin 300 mg capsule 450 mg PO DAILY active tb 05/13/24 05/12/24 16:00 History 450 mg acetaminophen 500 mg tablet 1,000 mg (2 x 500 mg) PO Q6H PRN 05/14/24 Unknown Rx PRN Pain 1-10 Or Fever #0 tabs ibuprofen 600 mg tablet 600 mg PO Q6H PRN PRN Pain Score 05/14/24 Unknown Rx 1-10 #0 tabs amoxicillin 875 mg-potassium 1 tab PO Q12H 10 days #20 tabs 05/16/24 Unknown Rx clavulanate 125 mg tablet Allergy/AdvReac Type Severity Reaction Status Date / Time No Known Allergies Allergy Verified 05/16/24 01:42 Social History Smoking Status: Former smoker alcohol intake: never Physical Exam Const alert and no apparent distress General Appearance: comfortable HEENT normocephalic Chest Chest Narrative: Bilateral breasts engorged and diffusely tender to palpation. No erythema, warmth, focal area of tenderness, fluctuance, skin changes Resp normal respiratory effort GI GI Narrative: Uterus firm and at U-1 and moderately tender on exam. Her uterine tenderness is more than expected 3 days . Abdomen non acute Extremity no calf tenderness Lab / Micro Data 05/16/24 02:27 05/16/24 02:27 Labs: Laboratory Results - last 24 hr 05/16/24 02:27: WBC 13.8 H, RBC 4.74, Hgb 11.0 L, Hct 35.0 L, MCV 73.8 L, MCH 23.2 L, MCHC 31.4 L, RDW Std Deviation 51.7 H, RDW Coeff of Don 19.9 H, Plt Count 326, MPV 9.9, Immature Gran % (Auto) 0.400, Neut % (Auto) 89.6 H, Lymph % (Auto) 6.2 L, [place] % (Auto) 3.2, Eos % (Auto) 0.5, Baso % (Auto) 0.1, Absolute Neuts (auto) 12.4 H, Absolute Lymphs (auto) 0.85, Nucleated RBC % 0, Sodium 139, Potassium 3.6, Chloride 108 H, Carbon Dioxide 26.0, Anion Gap 5, BUN 14, Creatinine 0.57, Estim Creat Clear Calc 103.12, Est GFR (MDRD) Af Amer 157, Est GFR (MDRD) Non-Af 130, BUN/Creatinine Ratio 24.5 H, Glucose 110 H, Calcium 8.3 L, Total Bilirubin 0.40, Direct Bilirubin 0.14, AST 91 H, ALT 59 H, Alkaline Phosphatase 246 H, Total Protein 6.7, Albumin 2.5 L, Globulin 4.2 Imaging Radiology Impression Transvaginal US 05/16/24 02:12 IMPRESSION: The endometrial cavity is thickened up to 3.2 cm with heterogeneous echogenicity and increased vascularity. Findings could indicate retained products of conception. Electronically Signed: Juwan Elaine MD at 4:47 EST ,
--- NOTE | 2024-05-16 06:53 | ED.RN ---
This RN went to obtain discharge vital signs while waiting for discharge paperwork and the patient was nursing her with a jacket on. The patient stated that the patient took out the patient's IV. This RN explicitly told the patient and her significant other that this RN would need to verify that the IV was out of her arm when this RN brought the patient's discharge paperwork. The patient and her significant other verbalized understanding. When this RN brought discharge paperwork to the room, this RN found an empty room. This RN alerted the HRO to verify that the IV was no longer in the patient's arm.
== END 2024-05-16 07:02 | disposition home or self-care (01) ==
PROVIDERS: Emergency Provider Emergency Medicine; Visit Provider Emergency Medicine
DX: O99.893 Other specified diseases and conditions complicating puerperium (principal); Z87.891 Personal history of nicotine dependence; N94.89 Other specified conditions associated with female genital organs and menstrual cycle; O86.12 Endometritis following delivery; O92.29 Other disorders of breast associated with pregnancy and the puerperium
CPT/HCPCS: 76830; 80048; 80076; 85025; 99283; A4216